=== PATIENT | female | born 1930 | race Caucasian/White ===

== ENCOUNTER 2018-04-15 11:10 | Emergency (ER) | payer MEDICARE, OTHER ==
[~2018-04-15] VITALS: Ht 170.2 cm; Wt 81.6 kg
[~2018-04-15 11:10] MED LIST: NAPR-243 PO
[2018-04-15] MEDS ORDERED: LIDOCAINE 1% INJ 20 ML 20 ML VIAL ONE (11:40)
[2018-04-15] MEDS ORDERED: LIDOCAINE 1% INJ 20 ML 20 ML VIAL INJ ONE (11:45)
[2018-04-15] MEDS ORDERED: TETANUS,DIPTH,PERTUSS P/F (BOOSTRIX) 0.5 ML VIAL IM ONE (11:45)
--- NOTE | 2018-04-15 11:51 | ED Fall/Injury ---
General Stated Complaint: FALL;FACE INJ Source: patient, family Exam Limitations: no limitations History of Present Illness Date Seen by Provider: Apr 15, 2018 Time Seen by Provider: 11:48 Initial Comments To ER by private vehicle, by her granddaughter with reports of a fall and substance with facial injury. She fell on the gravel while she was going [place] the post office. No loss of consciousness. No headache no nausea and she denies facial pain. No other injuries. Occurred: just prior to arrival Severity: moderate Injuries/Pain Location: head, face Loss of Consciousness: no loss of consciousness Associated Symptoms (Fall): No Headache, No Neck Pain Allergies and Home Medications Allergies Coded Allergies: No Known Drug Allergies (Unverified , 02/06/12) Home Medications Amoxicillin 500 Mg Capsule, 500 MG PO TID Prescribed by: DAVE AVILES on 04/15/18 1230 Naproxen 500 Mg Tablet, 1 EACH PO TID PRN FOR PAIN Prescribed by: MARQUISE WYATT on 02/06/12 1315 Patient Home Medication List Home Medication List Reviewed: Yes Review of Systems Review of Systems Constitutional: see HPI Eyes: See HPI Ears, Nose, Mouth, Throat: see HPI, epistaxis Respiratory: no symptoms reported Cardiovascular: no symptoms reported Genitourinary: no symptoms reported Musculoskeletal: no symptoms reported Skin: no symptoms reported Psychiatric/Neurological: No Symptoms Reported Past Sthdqxd-Igqnsg-Nkmgos Hx Patient Social History Recent Foreign Travel: No Contact w/Someone Who Travel: No Physical Exam Vital Signs Vital Signs - First Documented 04/15/18 12:01 Temp 97.8 Pulse 95 Resp 20 B/P (MAP) 103/61 (75) Pulse Ox 100 O2 Delivery Room Air Capillary Refill : Height, Weight, BMI Height: 5'10" Weight: 180lbs. oz. 81.304964jl; BMI Method:Stated General Appearance: WD/WN, no apparent distress HEENT: PERRL/EOMI, normal ENT inspection, TMs normal, pharynx normal, other ( significant periorbital ecchymosis on the right, swelling and bruising of the cheek, swelling of the bottom lip and. She does have a 1 cm laceration to the right nasolabial fold that is all the way through to the mucosa and a superficial laceration parallel to the vermilion border of the right lower lip.) Neck: non-tender, full range of motion; No tender lateral, No tender midline Respiratory: normal breath sounds, no respiratory distress, no accessory muscle use Gastrointestinal: normal bowel sounds, non tender, soft Extremities: normal range of motion, other (superficial skin tear 1 cm dorsal aspect ulnar side right wrist) Neurologic/Psychiatric: alert, normal mood/affect, oriented x 3 Skin: normal color, warm/dry [place] Coma Score Best Eye Response: (4) Open Spontaneously Best Verbal Response: (5) Oriented Best Motor Response: (6) Obeys Commands [place] Total: 15 Procedures/Interventions Wound Location: Face Wound Length (cm): 2 Wound's Depth, Shape: linear Wound Explored: clean Irrigated w/ Saline (ccs): 20 Anesthesia: 1% Lidocaine Volume Anesthetic (ccs): 2 Suture: Ethlion Suture Size: 5-0 Number of Sutures: 7 Layer Closure?: 1 Number Deep Layer Sutures: 0 Progress The laceration of the right nasolabial full was anesthetized with 1 mL of 1% lidocaine without epinephrine. Wound was then scrubbed with flexing/saline solution then irrigated with 20 mL of the same. The exterior surface was closed with 3 simple interrupted sutures size 5-0 Ethilon. The buccal mucosa was not sutured. The laceration 1 cm in length parallel to the vermilion border right lower lip was anesthetized with 1 mL of 1% lidocaine without epinephrine. Wound then scrubbed with chlorhexidine/saline solution. Wound then closed with 4 simple interrupted sutures size 5-0 Ethilon. Progress/Results/Core Measures Results/Orders My Orders Orders - DAVE AVILES APRN Dipht,Pertuss(Acell),Tet Adult (Boostrix (04/15/18 11:45) Lidocaine 1% Inj 20 Ml (Xylocaine 1% Inj (04/15/18 11:45) Ct Head/Face/Cervical Wo (04/15/18 11:41) Lidocaine 1% Inj 20 Ml (Xylocaine 1% Inj (04/15/18 11:40) Medications Given in ED Current Medications Medications Dose Ordered Sig/Brynn Route Start Time Stop Time Status Last Admin Dose Admin Lidocaine HCl 20 ml ONCE ONCE INJ 04/15/18 11:45 04/15/18 11:46 DC 04/15/18 11:45 20 ML Vital Signs/I&O 04/15/18 12:01 Temp 97.8 Pulse 95 Resp 20 B/P (MAP) 103/61 (75) Pulse Ox 100 O2 Delivery Room Air Diagnostic Imaging Diagonstic Imaging: CT Comments KENDAL: SHARAN HATCH [facility] REC#: [id number] PT STATUS: REG ER : 1930 PHYSICIAN: DAVE AVILES APRN ADMIT DATE: 04/15/18/ER Draft Date of Exam:04/15/18 CT HEAD/FACE/CERVICAL WO CLINICAL INDICATION: Patient fell and hit face, right-sided face bloody and swollen. EXAM: Axial Head CT without IV contrast with coronal reformats. Axial Maxillofacial CT scan without IV contrast with sagittal and coronal reformations. Axial CT scan of the cervical spine with sagittal and coronal reformations. COMPARISON: None. FINDINGS: Head CT: There is no evidence of acute cerebral infarct, intracranial hemorrhage, or gross mass effect. There is diffuse brain parenchymal volume loss seen. There is patchy and confluent areas of low-attenuation white matter changes throughout both cerebral hemispheres, likely representing chronic small vessel ischemic disease. There is normal segovia-white matter distinction. There is no significant midline shift or herniation. There is no evidence of hydrocephalus. The basal cisterns are unremarkable. Maxillofacial and skull CT: There is small amount of extra cranial soft tissue swelling in the right forehead/periorbital region and adjacent to the right nasal area. There is a comminuted fracture involving the right nasal bone which is mildly displaced. There is a nondisplaced fracture of the frontal process of the right maxilla. There is no other skull or maxillofacial fracture. Poor dentition is seen with multiple dental caries and periapical erosions involving the maxilla and mandibles. Otherwise, the skull, extracranial soft tissue, and orbits are unremarkable. The paranasal sinuses are unremarkable. Temporal bones show no significant abnormality. Cervical spine: There is no acute cervical spine fracture. There is grade 1 anterolisthesis of C3 on C4, C4 on C5 and C7 on T1. There is no pars defect and is likely degenerative. There is severe facet arthropathy which is most pronounced on the left side. There is multilevel vertebral body spurs. There is prominent matilda-odontoid pannus with calcification seen in the region. There is no significant prevertebral soft tissue swelling. Neck soft tissue structures show no significant abnormality. Visualized upper lung maddox are clear. IMPRESSION: 1: There is a mildly displaced comminuted fracture of the right nasal bone and a nondisplaced fracture of the frontal process of the right maxilla. There is soft tissue swelling adjacent to the region, right forehead and right periorbital region. Orbits are otherwise unremarkable. 2: There is no evidence of intracranial hemorrhage. 3: There is no acute cervical spine fracture. 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 Dictated on workstation # [id number] Dict: 04/15/18 1213 Trans: 04/15/18 1238 [facility] [phone] Interpreted by: EVA KAUR MD Electronically signed by: Departure Impression Primary Impression: Facial contusion Additional Impressions: Facial laceration Nasal bone fracture Right maxillary fracture Disposition: 01 HOME, SELF-CARE Condition: Stable Departure-Patient Inst. Decision time for Depature: 11:50 Referrals: HUY CLARK MD (PCP/Family) Primary Care Physician Patient Instructions: Laceration Repair With Stitches (DC) Add. Discharge Instructions: 1. Return to the emergency room in 5-7 days to have the stitches removed. Return for any headache, confusion, loss of consciousness or other concerns. Scripts Amoxicillin (Amoxicillin) 500 Mg Capsule 500 MG PO TID, #15 CAP Prov: DAVE AVILES APRN 04/15/18 Images Head/Face 1 - Laceration 2 - Laceration DAVE AVILES APRN Apr 15, 2018 11:51
[2018-04-15] MEDS ORDERED: AMOX500C2 PO (12:30)
--- NOTE | 2018-04-15 12:39 | Diagnostic Imaging Report ---
CLINICAL INDICATION: Patient fell and hit face, right-sided face bloody and swollen. EXAM: Axial Head CT without IV contrast with coronal reformats. Axial Maxillofacial CT scan without IV contrast with sagittal and coronal reformations. Axial CT scan of the cervical spine with sagittal and coronal reformations. COMPARISON: None. FINDINGS: Head CT: There is no evidence of acute cerebral infarct, intracranial hemorrhage, or gross mass effect. There is diffuse brain parenchymal volume loss seen. There is patchy and confluent areas of low-attenuation white matter changes throughout both cerebral hemispheres, likely representing chronic small vessel ischemic disease. There is normal segovia-white matter distinction. There is no significant midline shift or herniation. There is no evidence of hydrocephalus. The basal cisterns are unremarkable. Maxillofacial and skull CT: There is small amount of extra cranial soft tissue swelling in the right forehead/periorbital region and adjacent to the right nasal area. There is a comminuted fracture involving the right nasal bone which is mildly displaced. There is a nondisplaced fracture of the frontal process of the right maxilla. There is no other skull or maxillofacial fracture. Poor dentition is seen with multiple dental caries and periapical erosions involving the maxilla and mandibles. Otherwise, the skull, extracranial soft tissue, and orbits are unremarkable. The paranasal sinuses are unremarkable. Temporal bones show no significant abnormality. Cervical spine: There is no acute cervical spine fracture. There is grade 1 anterolisthesis of C3 on C4, C4 on C5 and C7 on T1. There is no pars defect and is likely degenerative. There is severe facet arthropathy which is most pronounced on the left side. There is multilevel vertebral body spurs. There is prominent matilda-odontoid pannus with calcification seen in the region. There is no significant prevertebral soft tissue swelling. Neck soft tissue structures show no significant abnormality. Visualized upper lung maddox are clear. IMPRESSION: 1: There is a mildly displaced comminuted fracture of the right nasal bone and a nondisplaced fracture of the frontal process of the right maxilla. There is soft tissue swelling adjacent to the region, right forehead and right periorbital region. Orbits are otherwise unremarkable. 2: There is no evidence of intracranial hemorrhage. 3: There is no acute cervical spine fracture. 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 Dictated by: Dictated on workstation # [id number]
[2018-04-15 13:00] VITALS: BP 103/61
== END 2018-04-15 13:00 | disposition home or self-care (01) ==
LOC: EDUNIT# 11:10 → ER 11:11
DX: S02.2XXA Fracture of nasal bones, initial encounter for closed fracture (principal); S02.40CA Maxillary fracture, right side, initial encounter for closed fracture; S01.81XA Laceration without foreign body of other part of head, initial encounter; R40.2142 Coma scale, eyes open, spontaneous, at arrival to emergency department; R40.2252 Coma scale, best verbal response, oriented, at arrival to emergency department; R40.2362 Coma scale, best motor response, obeys commands, at arrival to emergency department; Z23 Encounter for immunization; W01.10XA Fall on same level from slipping, tripping and stumbling with subsequent striking against unspecified object, initial encounter
CPT/HCPCS: 12011; 70450; 70486; 72125; 90471; 90715

== ENCOUNTER 2018-04-20 10:07 | Emergency (ER) | payer MEDICARE, OTHER ==
[~2018-04-20] VITALS: Ht 170.2 cm; Wt 80.7 kg
[~2018-04-20 10:07] MED LIST changes: +AMOX500C2 PO
[2018-04-20 10:37] VITALS: BP 117/49
== END 2018-04-20 10:37 | disposition home or self-care (01) ==
LOC: ER 10:07 → EDUNIT# 10:07 → ER 10:37
DX: S01.511D Laceration without foreign body of lip, subsequent encounter (principal); X58.XXXD Exposure to other specified factors, subsequent encounter

== ENCOUNTER 2018-07-22 13:07 | Inpatient (IN) | payer MEDICARE, OTHER ==
[~2018-07-22] VITALS: Ht 170.2 cm; Wt 78.0 kg
[2018-07-22] MEDS ORDERED: ORPHENADRINE 60 MG/2 ML (NORFLEX) AMP IV ONE (13:15)
[2018-07-22] MEDS ORDERED: fentaNYL INJECTION 100 MCG/2 ML AMP IVP ONE (13:15)
[2018-07-22] MEDS ORDERED: ORPHENADRINE 60 MG/2 ML (NORFLEX) AMP ONE (13:16)
--- NOTE | 2018-07-22 13:21 | ED Lower Extremity ---
General Chief Complaint: Hip/Pelvic Problems Stated Complaint: LT HIP PAIN,FALL Source: patient, family, EMS Exam Limitations: no limitations History of Present Illness Date Seen by Provider: Jul 22, 2018 Time Seen by Provider: 13:18 Initial Comments To ER per [facility] with reports of a fall and left hip pain. She states that she was walking to the bank in [place] when she had a brief episode of dizziness that caused her to fall. She landed on the left side and denies hitting her head or any neck pain. She states that the dizziness was brief and is no longer present. However, she does have some severe left hip pain and inability to bear weight. She denies any other injuries or pain. [facility] was summoned and brought her to the emergency room. She still lives at home alone and her granddaughter checks on her about 4 days a week. Her granddaughter accompanies her to the emergency room. Primary care provider is Dr. Gibbons. She does wish to be FULL CODE STATUS. She is not on anticoagulation. Onset: just prior to arrival Severity: moderate Pain/Injury Location: left hip Method of Injury: fell Allergies and Home Medications Allergies Coded Allergies: No Known Drug Allergies (Unverified , 02/06/12) Home Medications Lisinopril 5 Mg Tablet, Unknown Dose PO DAILY, (Reported) Patient Home Medication List Home Medication List Reviewed: Yes Review of Systems Constitutional: see HPI EENTM: see HPI Respiratory: no symptoms reported Cardiovascular: no symptoms reported Genitourinary: no symptoms reported Musculoskeletal: see HPI Skin: no symptoms reported Psychiatric/Neurological: No Symptoms Reported Physical Exam Vital Signs Vital Signs - First Documented 07/22/18 13:08 Temp 98.4 Pulse 94 Resp 18 B/P (MAP) 175/92 (119) Pulse Ox 97 O2 Delivery Room Air Capillary Refill : Height, Weight, BMI Height: 5'7.00" Weight: 178lbs. oz. 80.801552pk; 21.09 BMI Method:Stated General Appearance: WD/WN, no apparent distress HEENT: PERRL/EOMI, normal ENT inspection Neck: non-tender, full range of motion Respiratory: no respiratory distress, no accessory muscle use Hips: left hip other (there is shortening of the left leg with external rotation and severe pain at the left hip) Legs: bilateral leg non-tender, bilateral leg normal inspection, bilateral leg normal range of motion Knees: bilateral knee non-tender, bilateral knee normal inspection, bilateral knee normal range of motion Ankles: bilateral ankle non-tender, bilateral ankle normal inspection, bilateral ankle normal range of motion Feet: bilateral foot other (she does have strong palpable bilateral posterior tibial pulses) Neurologic/Psychiatric: alert, normal mood/affect Skin: normal color, warm/dry . She denies hitting her head or any head or neck pain. She did arrive to the emergency room in a rigid cervical collar applied by [facility]. This was cleared upon arrival to ER given her history of no injury or pain to the head or neck. She is able to turn her sed to either side and flex chin to chest without pain Procedures/Interventions Suture Size: 5-0 Progress/Results/Core Measures Results/Orders Lab Results Laboratory Tests Test 07/22/18 13:15 07/22/18 13:29 Range/Units White Blood Count 14.1 H 4.3-11.0 10^3/uL Red Blood Count 4.46 4.35-5.85 10^6/uL Hemoglobin 13.3 11.5-16.0 G/DL Hematocrit 40 35-52 % Mean Corpuscular Volume 89 80-99 FL Mean Corpuscular Hemoglobin 30 25-34 PG Mean Corpuscular Hemoglobin Concent 34 32-36 G/DL Red Cell Distribution Width 13.1 10.0-14.5 % Platelet Count 168 130-400 10^3/uL Mean Platelet Volume 10.5 H 7.4-10.4 FL Neutrophils (%) (Auto) 92 H 42-75 % Lymphocytes (%) (Auto) 4 L 12-44 % Monocytes (%) (Auto) 3 0-12 % Eosinophils (%) (Auto) 1 0-10 % Basophils (%) (Auto) 0 0-10 % Neutrophils # (Auto) 12.9 H 1.8-7.8 X 10^3 Lymphocytes # (Auto) 0.6 L 1.0-4.0 X 10^3 Monocytes # (Auto) 0.5 0.0-1.0 X 10^3 Eosinophils # (Auto) 0.1 0.0-0.3 10^3/uL Basophils # (Auto) 0.0 0.0-0.1 10^3/uL Neutrophils % (Manual) 88 % Lymphocytes % (Manual) 4 % Monocytes % (Manual) 7 % Eosinophils % (Manual) 1 % Basophils % (Manual) 0 % Band Neutrophils 0 % Blood Morphology Comment NORMAL Sodium Level 141 135-145 MMOL/L Potassium Level 4.0 3.6-5.0 MMOL/L Chloride Level 104 98-107 MMOL/L Carbon Dioxide Level 25 21-32 MMOL/L Anion Gap 12 5-14 MMOL/L Blood Urea Nitrogen 29 H 7-18 MG/DL Creatinine 0.93 0.60-1.30 MG/DL Estimat Glomerular Filtration Rate 57 BUN/Creatinine Ratio 31 Glucose Level 113 H 70-105 MG/DL Calcium Level 9.9 8.5-10.1 MG/DL Corrected Calcium 9.6 8.5-10.1 MG/DL Total Bilirubin 0.4 0.1-1.0 MG/DL Aspartate Amino Transf (AST/SGOT) 24 5-34 U/L Alanine Aminotransferase (ALT/SGPT) 18 0-55 U/L Alkaline Phosphatase 76 40-136 U/L Total Protein 7.7 6.4-8.2 GM/DL Albumin 4.4 3.2-4.5 GM/DL Urine Color YELLOW Urine Clarity CLEAR Urine pH 5 5-9 Urine Specific [place] 1.020 1.016-1.022 Urine Protein 1+ H NEGATIVE Urine Glucose (UA) NEGATIVE NEGATIVE Urine Ketones NEGATIVE NEGATIVE Urine Nitrite NEGATIVE NEGATIVE Urine Bilirubin NEGATIVE NEGATIVE Urine Urobilinogen NORMAL NORMAL MG/DL Urine Leukocyte Esterase 3+ H NEGATIVE Urine RBC (Auto) NEGATIVE NEGATIVE Urine RBC 2-5 H /HPF Urine WBC 2-5 /HPF Urine Squamous Epithelial Cells NONE /HPF Urine Crystals NONE /LPF Urine Bacteria NEGATIVE /HPF Urine Casts NONE /LPF Urine Mucus NEGATIVE /LPF Urine Culture Indicated NO My Orders Orders - DAVE AVILES APRN Chest 1 View, Ap/Pa Only (07/22/18 13:15) Ekg Tracing (07/22/18 13:15) Cbc With Automated Diff (07/22/18 13:15) Comprehensive Metabolic Panel (07/22/18 13:15) Ua Culture If Indicated (07/22/18 13:15) Espino Cath (07/22/18 13:15) Iv Heplock-Insert (Order) (07/22/18 13:15) Orphenadrine Injection (Norflex Injectio (07/22/18 13:15) Fentanyl Injection (Sublimaze Injection (07/22/18 13:15) Pelvis With Left Hip 2-3 Views (07/22/18 13:15) Orphenadrine Injection (Norflex Injectio (07/22/18 13:16) Manual Differential (07/22/18 13:15) Morphine Injection (Morphine Injection (07/22/18 14:00) Medications Given in ED Current Medications Medications Dose Ordered Sig/Brynn Route Start Time Stop Time Status Last Admin Dose Admin Fentanyl Citrate 50 mcg ONCE ONCE IVP 07/22/18 13:15 07/22/18 13:18 DC 07/22/18 13:21 50 MCG Morphine Sulfate 4 mg ONCE ONCE IVP 07/22/18 14:00 07/22/18 14:01 DC 07/22/18 13:56 4 MG Orphenadrine Citrate 30 mg ONCE ONCE IV 07/22/18 13:15 07/22/18 13:18 DC 07/22/18 13:21 30 MG Vital Signs/I&O 07/22/18 13:08 Temp 98.4 Pulse 94 Resp 18 B/P (MAP) 175/92 (119) Pulse Ox 97 O2 Delivery Room Air Diagnostic Imaging Diagonstic Imaging: Xray Comments NAME: SHARAN HATCH [facility] REC#: [id number] PT STATUS: REG ER : 1930 PHYSICIAN: DAVE AVILES APRN ADMIT DATE: 07/22/18/ER Draft Date of Exam:07/22/18 CHEST 1 VIEW, AP/PA ONLY INDICATION: Fall and left hip pain. Time of exam 200 p.m. No prior studies are available for comparison. The heart size is normal. The pulmonary vascularity is unremarkable. The lungs are clear. No infiltrate, effusion or pneumothorax is detected. Impression: No acute cardiopulmonary process is detected. Dictated on workstation # [id number] Dict: 07/22/18 1347 Trans: 07/22/18 1348 [facility] [phone] Interpreted by: NICK LOZA MD Electronically signed by: Departure Communication (Admissions) Time/Spoke to Admitting Phy: 14:[address] Rosas. He would like the patient to be kept nothing by mouth, tentative plan for operative repair this evening. Admit to medicine. Time/Spoke to Consulting Phy: 14:[address] Hogan. She'll be happy to consult on the patient for medical comorbidities which is hypertension Impression Primary Impression: Closed left hip fracture Qualified Codes: S72.002A - Fracture of unspecified part of neck of left femur , initial encounter for closed fracture Disposition: ADMITTED INPATIENT Condition: Stable Admissions Decision to Admit Reason: Admit from ER (General) Decision to Admit/Date: Jul 22, 2018 Time/Decision to Admit Time: 13:20 Departure-Patient Inst. Referrals: HUY GIBBONS MD (PCP/Family) Primary Care Physician DAVE AVILES APRN Jul 22, 2018 13:21
[2018-07-22] MEDS ORDERED: ATOR20TA66 PO (13:33)
[2018-07-22] MEDS ORDERED: SERT50TA2 PO (13:33)
[2018-07-22] MEDS ORDERED: GABA250S2 PO (13:33)
[2018-07-22] MEDS ORDERED: LISI-556 PO (13:34)
[2018-07-22] MEDS ORDERED: NAPR-1071 PO (13:34)
[2018-07-22 13:36] LABS: BILIRUBIN,URINE NEGATIVE (NEGATIVE); CLARITY,URINE CLEAR; COLOR,URINE YELLOW; GLUCOSE, URINE (UA) NEGATIVE (NEGATIVE); KETONES,URINE NEGATIVE (NEGATIVE); LEUKOCYTE ESTERASE ,URINE 3+ (NEGATIVE); NITRITE,URINE NEGATIVE (NEGATIVE); PH,URINE 5 (5-9); PROTEIN,URINE 1+ (NEGATIVE); UROBILINOGEN,URINE NORMAL (NORMAL)
[2018-07-22 13:44] LABS: BASOPHILS % (AUTO) 0 % (0-10); EOSINOPHILS # (AUTO) 0.1 10^3/uL (0.0-0.3); EOSINOPHILS % (AUTO) 1 % (0-10); HEMATOCRIT 40 % (35-52); HEMOGLOBIN 13.3 G/DL (11.5-16.0); LYMPHOCYTES # (AUTO) 0.6 X 10^3 (1.0-4.0); LYMPHOCYTES % (AUTO) 4 % (12-44); MEAN CORPUSCULAR HEMOGLOBIN 30 PG (25-34); MEAN CORPUSCULAR HGB CONC 34 G/DL (32-36); MEAN CORPUSCULAR VOLUME 89 FL (80-99); MEAN PLATELET VOLUME 10.5 FL (7.4-10.4); MONOCYTES # (AUTO) 0.5 X 10^3 (0.0-1.0); MONOCYTES % (AUTO) 3 % (0-12); NEUTROPHILS # (AUTO) 12.9 X 10^3 (1.8-7.8); NEUTROPHILS % (AUTO) 92 % (42-75); PLATELET COUNT 168 10^3/uL (130-400); RED BLOOD COUNT 4.46 10^6/uL (4.35-5.85); RED CELL DISTRIBUTION WIDTH 13.1 % (10.0-14.5); WHITE BLOOD COUNT 14.1 10^3/uL (4.3-11.0)
[2018-07-22 13:46] LABS: BACTERIA,URINE NEGATIVE /HPF
--- NOTE | 2018-07-22 13:48 | Diagnostic Imaging Report ---
INDICATION: Fall and left hip pain. Time of exam 200 p.m. No prior studies are available for comparison. The heart size is normal. The pulmonary vascularity is unremarkable. The lungs are clear. No infiltrate, effusion or pneumothorax is detected. Impression: No acute cardiopulmonary process is detected. Dictated by: Dictated on workstation # [id number]
[2018-07-22 13:58] LABS: ALBUMIN 4.4 GM/DL (3.2-4.5); BILIRUBIN,TOTAL 0.4 MG/DL (0.1-1.0); CALCIUM 9.9 MG/DL (8.5-10.1); CREATININE SERUM 0.93 MG/DL (0.60-1.30); TOTAL PROTEIN 7.7 GM/DL (6.4-8.2)
--- NOTE | 2018-07-22 13:58 | Diagnostic Imaging Report ---
INDICATION: Fall and left hip pain. AP view of the pelvis and two views of left hip demonstrate a left hip fracture. This appears to be a femoral neck fracture although exact location is difficult to determine on this study. There is coxa varus deformity. Femoroacetabular alignment is normal. Right hip is intact. Rami are intact. IMPRESSION: Left femoral neck fracture. Dictated by: Dictated on workstation # [id number]
[2018-07-22] MEDS ORDERED: morphine INJ 10 MG/ML 1ML (SYR OR VIAL) IVP ONE ×2 (14:00→14:30)
[2018-07-22 14:09] LABS: BAND NEUTROPHILS 0 %; BASOPHILS % (MANUAL) 0 %; EOSINOPHILS % (MANUAL) 1 %; LYMPHOCYTES % (MANUAL) 4 %; MONOCYTES % (MANUAL) 7 %; NEUTROPHILS % (MANUAL) 88 %
[2018-07-22 14:10] LABS: RBC MORPH NORMAL
[2018-07-22 14:40] VITALS: BP 128/70
[2018-07-22] MEDS ORDERED: LISI1TAB8 PO (15:07)
[2018-07-22] MEDS ORDERED: GABA-488 PO (15:07)
[2018-07-22] MEDS ORDERED: NAPR-915 PO (15:07)
[2018-07-22] MEDS ORDERED: ATOR40TA70 PO (15:07)
[2018-07-22] MEDS ORDERED: SERT100T8 PO (15:07)
--- NOTE | 2018-07-22 15:08 | Consultation-Hospitalist ---
HPI History of Present Illness: HPI/Chief Complaint Pt is an 88yoCF with a PMH of HTN who presented to the ER after a fall for evaluation of left hip pain. She states she was walking ot the bank when she got dizzy and fell landing on her hip. EMS was called due to her pain and she was brought her for evaluation where she was found to have a left hip fracture. She is being admitted for operative management and I am consulted for medical management. Family starts she is very healthy and her only medical problem is hypertension. She has no complaints at this time and has felt well otherwise. Source: patient Exam Limitations: no limitations Date Seen 07/22/18 Attending Physician Jerome Rosas Floyd R MD Referring Physician Date of Admission Jul 22, 2018 at 14:21 Home Medications & Allergies Home Medications Reviewed patient Home Medication Reconciliation performed by pharmacy medication reconciliations zoning technician and/or nursing. Patients Allergies have been reviewed. Allergies Allergies Coded Allergies No Known Drug Allergies (Unverified02/06/12) Past Broaaez-Skpmfq-Vsjfjf Hx Past Med/Social Hx: Reviewed Nursing Past Med/Soc Hx Patient Social History Alcohol Use: Denies Use Recreational Drug Use: No Smoking Status: Never a Smoker Recent Foreign Travel: No Contact w/other who traveled: No Recent Hopitalizations: No Recent Infectious Disease Expo: No Past Medical History Surgeries: Abdominal, Hysterectomy Cardiac: Hypertension Psychosocial: Depression Family History Reviewed Nursing Family Hx No Pertinent Family Hx Review of Systems Constitutional: No chills, No fever EENTM: No blurred vision, No double vision, No nose congestion, No throat pain Respiratory: No cough, No dyspnea on exertion, No short of breath Cardiovascular: No chest pain, No edema, No palpitations Gastrointestinal: No abdominal pain, No constipation, No diarrhea, No nausea, No vomiting Genitourinary: No dysuria, No frequency Musculoskeletal: see HPI, joint pain Skin: No lesions, No rash Psychiatric/Neurological: Denies Headache, Denies Numbness, Denies Tingling Physical Exam Physical Exam Vital Signs Vital Signs - First Documented 07/22/18 07/22/18 13:08 14:40 Temp 98.4 Pulse 94 Resp 18 B/P (MAP) 175/92 (119) Pulse Ox 97 O2 Delivery Room Air O2 Flow Rate 2.00 Capillary Refill : Less Than 3 Seconds Height, Weight, BMI Height: 5'7.00" Weight: 170lbs. oz. 77.048067yx; 21.09 BMI Method:Stated General Appearance: No Apparent Distress, WD/WN HEENT: PERRL/EOMI, Moist Mucous Membranes Neck: Non Tender, Supple Respiratory: Lungs Clear, No Respiratory Distress Cardiovascular: Regular Rate, Rhythm, No Murmur Gastrointestinal: Normal Bowel Sounds, Non Tender, Soft Extremity: Normal Capillary Refill, No Calf Tenderness Neurologic/Psychiatric: Alert, Oriented x3, Normal Mood/Affect Skin: Normal Color, Warm/Dry Results Results/Procedures Labs Laboratory Tests 07/22/18 13:15 Patient resulted labs reviewed. Imaging: Reviewed Imaging Report Assessment/Plan Assessment and Plan Assess & Plan/Chief Complaint Left femoral neck fracture Diagnosis/Problems Diagnosis/Problems (1) Closed left hip fracture Status: Acute Assessment & Plan: Management per Ortho Plan for OR today Per NSQIP calculator risk is 2.6% for serious complication Medically optimized for surgery Defer ultimate risk assessment to ortho Qualifiers: Encounter type: initial encounter Qualified Codes: S72.002A - Fracture of unspecified part of neck of left femur, initial encounter for closed fracture (2) Essential (primary) hypertension Assessment & Plan: Well controlled, APOLINAR Padron MD Jul 22, 2018 15:08
[2018-07-22 15:50] VITALS: BP 154/67
[2018-07-22] MEDS: NS IV 1000 ML 1,000 ML IV SCH (15:59)
[2018-07-22] MEDS ORDERED: ONDANSETRON 4 MG/2 ML (SDV) Z0FRAN IV PRN (16:00)
[2018-07-22] MEDS ORDERED: CATHETER FLUSH 10 ML SYR IV PRN (16:00)
[2018-07-22] MEDS: morphine INJ 4 MG/ML 1 ML (VIAL/SYRINGE) IV PRN ×2 (16:24→19:44)
[2018-07-22 19:25] VITALS: BP 112/58
[2018-07-23] MEDS: NS IV 1000 ML 1,000 ML IV SCH ×3 (00:01→17:08)
[2018-07-23 00:46] VITALS: BP 149/68
[2018-07-23] MEDS: morphine INJ 4 MG/ML 1 ML (VIAL/SYRINGE) IV PRN ×3 (02:28→11:54)
[2018-07-23 04:09] VITALS: BP 130/60
[2018-07-23] MEDS ORDERED: GENTAMICIN 40 MG/ML 2 ML INJ SDV ONE (06:37)
[2018-07-23] MEDS ORDERED: fentaNYL INJECTION 100 MCG/2 ML AMP ONE (06:46)
[2018-07-23] MEDS ORDERED: proPOfol 200 MG/20 ML (DIPRIVAN) VIAL IV ONE (06:46)
[2018-07-23] MEDS ORDERED: SUCCINYLCHOLINE INJ 100 MG/5 ML SYR ONE (06:46)
[2018-07-23] MEDS ORDERED: ONDANSETRON 4 MG/2 ML (SDV) Z0FRAN ONE (06:46)
[2018-07-23] MEDS ORDERED: LIDOCAINE PF 2% 5 ML (XYLOCAINE) VIAL ONE (06:46)
[2018-07-23] MEDS ORDERED: DEXAMETHASONE 10 MG/ML (DECADRON) 1 ML VIAL ONE (06:47)
[2018-07-23] MEDS ORDERED: MIDAZOLAM 2 MG/2 ML (VERSED) VIAL ONE (06:47)
[2018-07-23] MEDS: LACTATED RINGERS 1,000 ML IV PRN ×2 (07:15→08:15)
--- NOTE | 2018-07-23 07:43 | History & Physicial ---
History of Present Illness History of Present Illness Reason for visit/HPI 88 yo WF became dizzy and fell sustaining a displaced L femoral neck fracture. she was unable to bear weight and XR in via [place] emergency department ER showed a fracture. ortho was consulted and she was cleared by medicine for surgery. Date of Admission Jul 22, 2018 at 14:21 Date Seen by a Provider: Jul 23, 2018 Time Seen by a Provider: 07:40 I consulted on this patient on 07/23/18 07:39 Attending Physician Alexandria Rosas DO Admitting Physician Gurdeep Gibbons MD Consult Allergies and Home Medications Allergies Coded Allergies: No Known Drug Allergies (Unverified , 02/06/12) Home Medications Atorvastatin Calcium 40 Mg Tablet, 40 MG PO DAILY, (Reported) LAST FILLED #90 03-11-18 Gabapentin 300 Mg Capsule, 300 MG PO BID, (Reported) Lisinopril/Hydrochlorothiazide 1 Each Tablet, 1 TAB PO DAILY, (Reported) Naproxen 500 Mg Tablet, 500 MG PO BID, (Reported) Sertraline HCl 100 Mg Tablet, 100 MG PO DAILY, (Reported) LAST FILLED #90 03-11-18 Patient Home Medication List Home Medication List Reviewed: Yes Past Jyoswmh-[id number]-Wubvxj Hx Patient Social History Alcohol Use: Denies Use Recreational Drug Use: No Smoking Status: Never a Smoker Physical Abuse Screen: No Sexual Abuse: No Recent Foreign Travel: No Contact w/other who traveled: No Recent Hopitalizations: No Recent Infectious Disease Expo: No Immunizations Up To Date Date of Influenza Vaccine: Jun 03, 2018 Seasonal Allergies Seasonal Allergies: No Surgeries Abdominal, Hysterectomy Respiratory No Cardiovascular Yes Hypertension Neurological No Genitourinary No Gastrointestinal No Musculoskeletal No Endocrine History of Endocrine Disorders: No HEENT History of HEENT Disorders: No Cancer No Psychosocial History of Psychiatric Problem: No Behavioral Health Disorders: Depression Integumentary History of Skin or Integumenta: No Blood Transfusions History of Blood Disorders: No Family Medical History Significant Family History: No Pertinent Family Hx Family Hx: Patient reports no known family medical history. Review of Systems Constitutional: no symptoms reported Physical Exam Vital Signs Vital Signs - First Documented 07/22/18 07/22/18 13:08 14:40 Temp 98.4 Pulse 94 Resp 18 B/P (MAP) 175/92 (119) Pulse Ox 97 O2 Delivery Room Air O2 Flow Rate 2.00 Capillary Refill : Less Than 3 SecondsLess Than 3 Seconds Height, Weight, BMI Height: 5'7.00" Weight: 172lbs. 0.0oz. [id number]; 26.9 BMI Method:Stated General Appearance: No Apparent Distress Extremity: Other (LLE short and externally rotated, NVSI, skin intact, 2/4 DP, PT) Assessment/Plan Assessment and Plan ASSESSMENT: displaced left femoral neck fracture PLAN: left hip hemiarthroplasty post op DVT prophylaxis WBAT post op Problems: (1) Closed left hip fracture Status: Acute Qualifiers: Qualified Codes: S72.002A - Fracture of unspecified part of neck of left femur, initial encounter for closed fracture Assessment & Plan: Management per Ortho Plan for OR today Per NSQIP calculator risk is 2.6% for serious complication Medically optimized for surgery Defer ultimate risk assessment to ortho (2) Essential (primary) hypertension Assessment & Plan: Well controlled, trend Admission Diagnosis Admission Status: Inpatient Order (span 2 midnights) Reason for Inpatient Admission: pain Clinical Quality Measures DVT/VTE Risk/Contraindication: Risk Factor Score Per Nursin RFS Level Per Nursing on Admit: 4+=Very High ALEXANDRIA ROSAS DO Jul 23, 2018 07:43
[2018-07-23] MEDS: ceFAZolin 1,000 MG/10 ML (ANCEF) VIAL ONE ×2 (07:45→11:19)
[2018-07-23] MEDS ORDERED: ceFAZolin 1,000 MG/10 ML (ANCEF) VIAL IV ONE (08:15)
[2018-07-23] MEDS ORDERED: SEVOFLURANE (ULTANE) 15 ML INHAL SOLN ONE (08:51)
[2018-07-23] MEDS ORDERED: ROCURONIUM 10 MG/ML 5 ML SYRINGE IV ONE (08:51)
[2018-07-23] MEDS ORDERED: BUPIVACAINE 0.25% 30 ML (SENSORCAINE) VIAL ONE (08:51)
[2018-07-23] MEDS ORDERED: NEOSTIGMINE 1 MG/ML 5 ML SYRINGE ONE (08:52)
[2018-07-23] MEDS ORDERED: GLYCOPYRROLATE 0.2 MG/ML (ROBINUL) 2 ML VIAL ONE (08:52)
[2018-07-23] MEDS ORDERED: MEPERIDINE (DEMEROL) INJ 50 MG/ML IVP ONE (09:45)
[2018-07-23] MEDS ORDERED: ONDANSETRON 4 MG/2 ML (SDV) Z0FRAN IVP PRN (09:45)
[2018-07-23] MEDS ORDERED: morphine INJ 10 MG/ML 1ML (SYR OR VIAL) IVP ONE (09:45)
[2018-07-23 10:25] VITALS: BP 118/60
[2018-07-23 12:00] VITALS: BP 113/53
[2018-07-23] MEDS: HYDROcodone/APAP 7.5 MG/325 MG (LORTAB, LORCET PLUS) TABLET PO PRN ×2 (12:09→19:49)
--- NOTE | 2018-07-23 14:05 | Diagnostic Imaging Report ---
INDICATION: Left hip surgery. TIME OF EXAM: 01:05 p.m. FINDINGS: Single view of the hip demonstrates postop changes of left hip arthroplasty. Prosthetic elements are in good position. No fracture or loosening is seen. Overlying skin elroy are noted. IMPRESSION: Satisfactory postop left hip. Dictated by: Dictated on workstation # [id number]
--- NOTE | 2018-07-23 14:52 | Physical Therapy Evaluation ---
PT Evaluation-General Medical Diagnosis Admission Date Jul 22, 2018 at 14:21 Medical Diagnosis: left femoral neck fracture Onset Date: Jul 22, 2018 Therapy Diagnosis Therapy Diagnosis: generalized weakness/debility Height/Weight Height (Feet): 5 Height (Inches): 7.00 Weight (Pounds): 172 Weight (Ounces): 0.0 Precautions Precautions/Isolations: Fall Prevention, Standard Precautions Weight Bear Status Right Lower Extremity: Right Full Weight Bearing Left Lower Extremity: Left Partial Weight Bearing Referral Physician: Ralph Reason for Referral: Evaluation/Treatment Medical History Additional Medical History unremarkable Current History EMS secondary to fall at bank secondary to dizziness, falling to left Reviewed History: Yes Social History Home: Single Level Current Living Status: Alone Prior/Core FIM Prior Level of Function Therapy Code Descriptions/Definitions Functional [place] Measure: 0=Not Assessed/NA 4=Minimal Assistance 1=Total Assistance 5=Supervision or Setup 2=Maximal Assistance 6=Modified [place] 3=Moderate Assistance 7=Complete [place] Therapy Quality Codes: 6 Independent with activity with or without an assistive device 5 Patient requires set up or clean up by helper. Patient completes activity by themselves 4 Supervision or touching assist (CGA). [place] provide cues , steadying assist 3 The helper provides less than half the effort to complete the activity 2 The helper provides more than half the effort to complete the activity 1 Dependent. The helper does all the effort to complete an activity 7 Patient refused to complete or attempt activity 9 The patient did not perform the activity before the current illness or injury 88 Not attempted due to Medical conditions or safety concerns Functional Abilities and Goals: Independent: Patient completed the activities by him/herself, with or without an assistive device, with no assistance from a helper. Needed Some Help: Patient needed partial assistance from another person to complete activities. Dependent: A helper completed the activities for the patient. Unknown: Not Applicable: Bed Mobility: 6 Transfers (B,C,W/C) (FIM): 6 Gait: 7 Stairs: 6 Indoor Mobility (Ambulation): Independent Stairs: Independent Prior Devices Use: None PT Evaluation-Current Subjective Patient agrees to PT. Pain Numeric Pain Scale: 5-Moderate Pain Location: Left Location Body Site: Hip Pain Description: Acute Objective Patient Orientation: Normal For Age Problem Solving: Fair Attachments: Oxygen, Espino Catheter, IV ROM/Strength ROM Lower Extremities right LE WFL/left LE THR Strength Lower Extremities right LE 4-/5 grossly/ left LE 3-/5 grossly Integumentary/Posture Integumentary refer to nursing notes Bladder Incontinence: Espino Cath Posture WFL Neuromuscular (Tone, Coordination, Reflexes) diminished coordination due sedation from surgery Sensory Vision: Wears Glasses Hearing: Functional Sensation Right Lower Extremit: Intact Sensation Left Lower Extremity: Intact Transfers Therapy Code Descriptions/Definitions Functional [place] Measure: 0=Not Assessed/NA 4=Minimal Assistance 1=Total Assistance 5=Supervision or Setup 2=Maximal Assistance 6=Modified [place] 3=Moderate Assistance 7=Complete [place] Transfers (B, C, W/C) (FIM): 2 Scootin Supine to/from Sit: 2 Sit to/from Stand: 2 difficulty with maintaining PWB left LE Gait Mode of Locomotion: Walk Anticipated Mode of Locomotion: Walk Gait Assistive Device: FWW Balance Sitting Static: Fair Sitting Dynamic: Fair Standing Static: Poor Standing Dynamic: Poor Assessment/Needs 88 y.o. female, will benefit from skilled PT to address functional strength and mobility to improve current LOF to safely return to home or care facility at maximum LOF. Due to PWB left LE, patient may require extended care facility to ensure safe healing to return to home. Rehab Potential: Fair PT Short Term Goals Short Term Goals Time Frame: Aug 04, 2018 Transfers (B,C,W/C) (FIM): 4 Gait (FIM): 1 Distance (FIM): 1=up to 49 ft Gait Distance Comment: 15' Gait Level of Assist: 4 Gait Assistive Device: FWW PT Supervisor Core Drilling Goals Detention Goals PT Supervisor Core Drilling Goals Time Frame: Aug 14, 2018 Transfers (B,C,W/C) (FIM): 5 Gait (FIM): 2 Gait distance (FIM): 7=688-67 ft Distance: 75' Gait Level of Assist: 4 Gait Assistive Device: FWW PT Plan Problem List Problem List: Activity Tolerance, Functional Strength, Safety, Balance, Gait, Transfer, Bed Mobility Treatment/Plan Treatment Plan: Continue Plan of Care Treatment Plan: Bed Mobility, Education, Functional Activity Renate, Functional Strength, Gait, Safety, Therapeutic Exercise, Transfers Treatment Duration: Aug 21, 2018 Frequency: 11 times per week Estimated Hrs Per Day: .5 hour per day Patient and/or Family Agrees t: Yes Safety Risks/Education Patient Education: Reviewed Precautions Teaching Recipient: Patient Teaching Methods: Discussion Response to Teaching: Reinforcement Needed Discharge Recommendations Therapy D/C Recommendations: Acute Rehab, Home w/ Family Support, Fpc Placement, Group Home (TCU/NH) Time/GCodes Time In: 1420 Time Out: 1441 Total Billed Treatment Time: 21 Total Billed Treatment 1 visit EVModC 21 min AUNG FRY PT Jul 23, 2018 14:52
[2018-07-23 15:54] VITALS: BP 119/56
[2018-07-23] MEDS ORDERED: ceFAZolin 2 GM IV Premixed 50 ML IV SCH (16:00)
--- NOTE | 2018-07-23 17:19 | OPERATIVE REPORT ---
DATE OF SERVICE: 07/23/2018 SURGEON: Jerome Rosas DO MAINTENANCE SUPERVISOR ELECTRICAL: PHOEBE Beatty. This is a medically necessary procedure. Assistance was necessary for retraction of vital neurovascular structures. Without an assistant softball coach, the procedure would not be possible. PREOPERATIVE DIAGNOSIS: Displaced left femoral neck fracture. POSTOPERATIVE DIAGNOSIS: Displaced left femoral neck fracture. PROCEDURE PERFORMED: Left hip hemiarthroplasty. COMPLICATIONS: None. SPECIMENS: None. DRAINS PLACED: None. ESTIMATED BLOOD LOSS: Minimal. HISTORY OF PRESENT ILLNESS: The patient is a very pleasant 88-year-old female who became dizzy and fell yesterday. She came to the ER where x-rays were taken demonstrating a displaced femoral neck fracture. Orthopedics was consulted and she was cleared by medicine for surgery. DESCRIPTION OF PROCEDURE: The patient was identified by name on wrist band in the preoperative holding area and the operative site was signed, consent was signed. SCDs were placed. Antibiotics were started. She was taken to the operating theater and placed under general endotracheal tube anesthesia and then transferred to the operating room table in lateral position with the left side up. She was then secured to the table, prepped and draped in usual sterile fashion. After a formal timeout, incision was made over the lateral aspect of the left proximal femur. Standard approach to the proximal femur took place. I split the gluteus dione muscle, performed a T-shaped capsulotomy and I then removed the femoral head. I performed a femoral neck cut and alignment with _the cutting guide____ provided by the Synthes prosthesis, which I was to use. At this point, I gained access to the femoral canal and I broached it to the appropriate size. I then trialled it and I assessed leg length tension as well as the length and the trial was the fit. Therefore, I irrigated the wound. I placed a Synthes permanent femoral component followed by the bipolar component. I then relocated this in the acetabulum and brought it through a gentle range of motion. I then closed the capsulotomy utilizing a 0 Ti-Cron stitch. I then irrigated again. I closed all the soft tissue with 0 Vicryl followed by elroy for skin. I applied dressings, took the patient in the supine position in the PACU where she awoke without incident. She tolerated the procedure well. PLAN: At this time is to admit the patient for IV antibiotics, IV pain control and postoperative monitoring. We will have the patient on blood thinners per medicine. She will receive medical treatment per medicine, but she is stable to weightbear as tolerated. Job ID: [id number] DocumentID: [id number] Dictated Date: 07/23/2018 08:57:22 Chargeback Analyst Date: 07/23/2018 17:18:44 Dictated By: DO RADHA FRAIRE
[2018-07-23] MEDS: ENOXAPARIN 30 MG/0.3 ML (LOVENOX) SYR SC SCH (19:49)
[2018-07-23 20:00] VITALS: BP 113/55
[2018-07-24] VITALS: BP 119/59
[2018-07-24] MEDS: NS IV 1000 ML 1,000 ML IV SCH ×4 (01:12→17:52)
[2018-07-24 04:00] VITALS: BP 115/56
[2018-07-24 05:54] LABS: RED BLOOD COUNT 2.7 10^6/uL (4.35-5.85); WHITE BLOOD COUNT 6.2 10^3/uL (4.3-11.0)
[2018-07-24 06:10] LABS: ALANINE AMINOTRANSFERASE 12 U/L (0-55); ALBUMIN 2.9 GM/DL (3.2-4.5); ALKALINE PHOSPHATASE 43 U/L (40-136); BILIRUBIN,TOTAL 0.4 MG/DL (0.1-1.0); BUN/CREATININE RATIO 24; CARBON DIOXIDE 23 MMOL/L (21-32); CHLORIDE 110 MMOL/L (98-107); CREATININE SERUM 0.71 MG/DL (0.60-1.30); GFR ESTIMATED > 60; GLUCOSE 119 MG/DL (70-105); POTASSIUM 3.4 MMOL/L (3.6-5.0); SODIUM 141 MMOL/L (135-145); TOTAL PROTEIN 4.9 GM/DL (6.4-8.2)
[2018-07-24] MEDS: HYDROcodone/APAP 7.5 MG/325 MG (LORTAB, LORCET PLUS) TABLET PO PRN ×2 (07:48→16:44)
[2018-07-24 08:00] VITALS: BP 129/62
[2018-07-24] MEDS: ENOXAPARIN 30 MG/0.3 ML (LOVENOX) SYR SC SCH ×2 (08:53→16:40)
--- NOTE | 2018-07-24 10:04 | Anesthesia-General Post-Op ---
General Patient Condition Mental Status/LOC: Same as Preop Cardiovascular: Satisfactory Nausea/Vomiting: Absent Respiratory: Satisfactory Pain: Controlled Complications: Absent Post Op Complications Complications None Follow Up Care/Instructions Patient Instructions None needed. Anesthesia/Patient Condition Patient Condition Patient is doing well, no complaints, stable vital signs, no apparent adverse anesthesia problems. No complications reported per nursing. SARAH PHELPS CRNA Jul 24, 2018 10:04
--- NOTE | 2018-07-24 10:51 | Occupational Therapy Eval ---
OT Evaluation-General/PLF Medical Diagnosis Admission Date Jul 22, 2018 at 14:21 Medical Diagnosis: left femoral neck fracture/ASA Onset Date: Jul 22, 2018 Therapy Diagnosis Therapy Diagnosis: Decreased ADL skills Height/Weight Height (Feet): 5 Height (Inches): 7.00 Weight (Pounds): 172 Weight (Ounces): 0.0 Precautions Precautions/Isolations: Fall Prevention, Standard Precautions Safety Interventions: Reorient-PRN Weight Bear Status Weight Bearing Restriction: Weight Bearing/Tolerated Referral Physician: Ralph Referral Reason: Activity Tolerance, Self Care, Evaluation/Treatment, Strengthening/ROM Medical History Additional Medical History Hysterectomy Current History Pt. fell outside and sustained femoral neck fx. Had left ASA Reviewed History: Yes Social History Home: Single Level Current Living Status: Alone Entry Into Home: Level Entry In back of house. ADL-Prior Level of Function Therapy Code Descriptions/Definitions Functional [place] Measure: 0=Not Assessed/NA 4=Minimal Assistance 1=Total Assistance 5=Supervision or Setup 2=Maximal Assistance 6=Modified [place] 3=Moderate Assistance 7=Complete [place] Therapy Quality Codes: 6 Independent with activity with or without an assistive device 5 Patient requires set up or clean up by helper. Patient completes activity by themselves 4 Supervision or touching assist (CGA). [place] provide cues , steadying assist 3 The helper provides less than half the effort to complete the activity 2 The helper provides more than half the effort to complete the activity 1 Dependent. The helper does all the effort to complete an activity 7 Patient refused to complete or attempt activity 9 The patient did not perform the activity before the current illness or injury 88 Not attempted due to Medical conditions or safety concerns Functional Abilities and Goals: Independent: Patient completed the activities by him/herself, with or without an assistive device, with no assistance from a helper. Needed Some Help: Patient needed partial assistance from another person to complete activities. Dependent: A helper completed the activities for the patient. Unknown: Not Applicable: ADL PLOF Comments Pt. was independent with daily tasks. Self Care: Independent Functional Cognition: Independent DME/Equipment: Tub/Shower DME/Equipment Comments Pt. does not have a shower seat. Does not have a walker. Uses a cane for mobility. Drive Self: Yes OT Current Status Subjective Pt. states that she is "sore" but does not state a pain level. Appearance Pt. in bed. Visiting with a friend. Agrees to work with OT. Mental Status/Objective Patient Orientation: Person, Place, Time, Situation Attachments: Espino Catheter, IV Current Upper Extremity ROM WFL Upper Extremity Strength WFL ADL-Treatment Therapy Code Descriptions/Definitions Functional [place] Measure: 0=Not Assessed/NA 4=Minimal Assistance 1=Total Assistance 5=Supervision or Setup 2=Maximal Assistance 6=Modified [place] 3=Moderate Assistance 7=Complete [place] Therapy Quality Codes: 6 Independent with activity with or without an assistive device 5 Patient requires set up or clean up by helper. Patient completes activity by themselves 4 Supervision or touching assist (CGA). [place] provide cues , steadying assist 3 The helper provides less than half the effort to complete the activity 2 The helper provides more than half the effort to complete the activity 1 Dependent. The helper does all the effort to complete an activity 7 Patient refused to complete or attempt activity 9 The patient did not perform the activity before the current illness or injury 88 Not attempted due to Medical conditions or safety concerns Lower Body Dressing (FIM): 2 (Pt. has hip precautions and can't bend over.) Transfers (B, C, W/C) (FIM): 3 (Mod assist supine-sit. Min assist sit-stand. Min assist to lay back down and get left LE into bed.) Education OT Patient Education: Correct positioning, Modified ADL techniques, Progress toward Goal/Update tx plan, Purpose of tx/functional activities, Reviewed precautions, Rehab process, Transfer techniques Teaching Recipient: Patient Teaching Methods: Demonstration, Discussion Response to Teaching: Verbalize Understanding, Return Demonstration OT Short Term Goals Short Term Goals Time Frame: Jul 31, 2018 Eating(FIM): 5 Grooming(FIM): 5 Bathing(FIM): 4 Upper Body Dressing(FIM): 5 Lower Body Dressing(FIM): 4 Toileting(FIM): 5 Transfers (B,C,W/C) (FIM): 4 Toilet/Commode Transfer(FIM): 4 Shower Transfer(FIM): 4 Additional Short Term Goals: 1-Demonstrate ADL Tasks, 2-Verbalize Understanding , 3-ImproveStrength/Renate 1=Demonstrate adherence to instructed precautions during ADL tasks. 2=Patient will verbalize/demonstrate understanding of assistive devices/ modifications for ADL. 3=Patient will improve strength/tolerance for activity to enable patient to perform ADL's. OT Form Setter Helper Goals Mcc Goals Time Frame: Aug 07, 2018 Eating (FIM): 6 Grooming(FIM): 6 Bathing(FIM): 5 Upper Body Dressing(FIM): 6 Lower Body Dressing(FIM): 5 Toileting(FIM): 6 Transfers (B,C,W/C) (FIM): 6 Toilet/Commode Transfer(FIM): 6 Shower Transfer(FIM): 5 Additional Goals: 1-Demonstrate ADL Tasks, 2-Verbalize Understanding, 3- ImproveStrength/Renate 1=Demonstrate adherence to instructed precautions during ADL tasks. 2=Patient will verbalize/demonstrate understanding of assistive devices/ modifications for ADL. 3=Patient will improve strength/tolerance for activity to enable patient to perform ADL's. OT Education/Plan Problem List/Assessment Assessment: Decreased Activ Tolerance, Dependent Transfers, Impaired Bed Mobility, Impaired Funct Balance, Impaired I ADL's, Impaired Self-Care Skills Discharge Recommendations Plan/Recommendations: Continue POC Therapy D/C Recommendations: Acute Rehab Equpiment Recommendations-D/C: Extended Bath Bench, Hip Kit Treatment Plan/Plan of Care Treatment,Training & Education: Yes Patient would benefit from OT for education, treatment and training to promote independence in ADL's, mobility, safety and/or upper extremity function for ADL' s. Plan of Care: ADL Retraining, Functional Mobility, UE Funct Exercise/Act Treatment Duration: Aug 07, 2018 Frequency: At least 5 of 7 days/Wk (IRF) Estimated Hrs Per Day: 1.5 hours per day Agreement: Yes Rehab Potential: Good Time/GCodes Start Time: 10:05 Stop Time: 10:20 Total Time Billed (hr/min): 15 Billed Treatment Time 1, NORA BOWMAN OT Jul 24, 2018 10:51
--- NOTE | 2018-07-24 11:08 | Physical Therapy Daily Note ---
PT Daily Note-Current Subjective Pt alert and agreeable. Transfers Therapy Code Descriptions/Definitions Functional [place] Measure: 0=Not Assessed/NA 4=Minimal Assistance 1=Total Assistance 5=Supervision or Setup 2=Maximal Assistance 6=Modified [place] 3=Moderate Assistance 7=Complete [place] Therapy Quality Codes: 6 Independent with activity with or without an assistive device 5 Patient requires set up or clean up by helper. Patient completes activity by themselves 4 Supervision or touching assist (CGA). [place] provide cues , steadying assist 3 The helper provides less than half the effort to complete the activity 2 The helper provides more than half the effort to complete the activity 1 Dependent. The helper does all the effort to complete an activity 7 Patient refused to complete or attempt activity 9 The patient did not perform the activity before the current illness or injury 88 Not attempted due to Medical conditions or safety concerns Transfers (B, C, W/C) (FIM): 2 Supine to/from Sit: 2 Sit to/from Stand: 3 Bed to/from Chair: 3 Pt is a bit impulsive and needs frequent cues to slow down and maintain PWB. Getting into bed was MAX assist. Weight Bearing Right Lower Extremity: Right Full Weight Bearing Left Lower Extremity: Left Partial Weight Bearing Gait Training Distance: 5 Amb 5ft PWB on the (L) using FWW and Min A for balance. Constant cues for sequence and to slow down. Exercises Supine Ex: LE Protocol Supine Reps: 10 PT Short Term Goals Short Term Goals Time Frame: Aug 04, 2018 Transfers (B,C,W/C) (FIM): 4 Gait (FIM): 1 Distance (FIM): 1=up to 49 ft Gait Distance Comment: 15' Gait Level of Assist: 4 Gait Assistive Device: FWW PT Skilled Nursing Goals [place] Machine Operator Goals PT Skilled Nursing Goals Time Frame: Aug 14, 2018 Transfers (B,C,W/C) (FIM): 5 Gait (FIM): 2 Gait distance (FIM): 6=139-57 ft Distance: 75' Gait Level of Assist: 4 Gait Assistive Device: FWW PT Plan Treatment/Plan Treatment Plan: Continue Plan of Care Treatment Plan: Bed Mobility, Education, Functional Activity Renate, Functional Strength, Gait, Safety, Therapeutic Exercise, Transfers Treatment Duration: Aug 21, 2018 Frequency: 11 times per week Estimated Hrs Per Day: .5 hour per day Patient and/or Family Agrees t: Yes Time/GCodes Time In: 1040 Time Out: 1100 Total Billed Treatment Time: 20 Total Billed Treatment visit, ex 10min, gait 10min DONNIE LORA PT Jul 24, 2018 11:08
--- NOTE | 2018-07-24 11:54 | Progress Note-Hospitalist ---
Subjective HPI/CC On Admission Date Seen by Provider: Jul 24, 2018 Time Seen by Provider: 08:00 Pt is an 88yoCF with a PMH of HTN who presented to the ER after a fall for evaluation of left hip pain. She states she was walking ot the bank when she got dizzy and fell landing on her hip. EMS was called due to her pain and she was brought her for evaluation where she was found to have a left hip fracture. She is being admitted for operative management and I am consulted for medical management. Family starts she is very healthy and her only medical problem is hypertension. She has no complaints at this time and has felt well otherwise. Subjective/Events-last exam Patient denies any pain at rest and with movement there is some left incisional hip pain. She denies chest pain shortness of breath or nausea. She also denies any lightheadedness. There is been no evidence for melena or bright red blood per rectum. Objective Exam Vital Signs Vital Signs Date Time Temp Pulse Resp B/P (MAP) Pulse Ox O2 Delivery O2 Flow Rate FiO2 07/24/18 08:00 Nasal Cannula 2.00 07/24/18 08:00 100.0 92 18 129/62 (84) 93 Capillary Refill : Less Than 3 SecondsLess Than 3 Seconds General Appearance: No Apparent Distress, WD/WN Respiratory: Chest Non Tender, Lungs Clear, Normal Breath Sounds, No Accessory Muscle Use, No Respiratory Distress Cardiovascular: Regular Rate, Rhythm, No Edema, No Gallop, No JVD, No Murmur, Normal Peripheral Pulses Gastrointestinal: Normal Bowel Sounds, No Organomegaly, No Pulsatile Mass, Non Tender, Soft Extremity: Other (Average amount of left hip swelling post hemiarthroplasty there is no significant induration or purpura noted. There is no calf pain present in the incision looks clean no drainage on the bandage. Extremities are warm) Results/Procedures Lab Laboratory Tests 07/24/18 05:30 Patient resulted labs reviewed. Imaging: Reviewed Imaging Report Assessment/Plan Assessment and Plan Assess & Plan/Chief Complaint (1) Closed left hip fracture Status: Acute Assessment & Plan: Management per Ortho Plan for OR today Per NSQIP calculator risk is 2.6% for serious complication Medically optimized for surgery Defer ultimate risk assessment to ortho Qualifiers: Encounter type: initial encounter Qualified Codes: S72.002A - Fracture of unspecified part of neck of left femur, initial encounter for closed fracture (2) Essential (primary) hypertension Assessment & Plan: Well controlled, on no medical therapy. The patient has had several falls in the last week reporting some lightheadedness. Discussed my concerns with the daughter about orthostatic hypotension and she is in agreement that we will not be reinitiating antihypertensive medication unless there is significant sitting or standing hypertension. 3. Postop anemia likely due to combination of fracture related bleeding surgical blood loss in addition to IV rehydration. No evidence for ongoing active bleeding but will hold Lovenox today repeat blood counts later today and again in the morning. There is no evidence for hemodynamic instability at this time. Clinical Quality Measures DVT/VTE Risk/Contraindication: Risk Factor Score Per Nursin RFS Level Per Nursing on Admit: 4+=Very High MARIANO SILVA MD Jul 24, 2018 11:54
[2018-07-24 12:00] VITALS: BP 136/61
[2018-07-24 12:02] LABS: BASOPHILS % (AUTO) 0 % (0-10); EOSINOPHILS # (AUTO) 0.2 10^3/uL (0.0-0.3); EOSINOPHILS % (AUTO) 4 % (0-10); HEMATOCRIT 26 % (35-52); HEMOGLOBIN 8.4 G/DL (11.5-16.0); LYMPHOCYTES # (AUTO) 0.8 X 10^3 (1.0-4.0); LYMPHOCYTES % (AUTO) 12 % (12-44); MEAN CORPUSCULAR HEMOGLOBIN 30 PG (25-34); MEAN CORPUSCULAR HGB CONC 32 G/DL (32-36); MEAN CORPUSCULAR VOLUME 92 FL (80-99); MEAN PLATELET VOLUME 9.9 FL (7.4-10.4); MONOCYTES # (AUTO) 0.5 X 10^3 (0.0-1.0); MONOCYTES % (AUTO) 8 % (0-12); NEUTROPHILS # (AUTO) 4.7 X 10^3 (1.8-7.8); NEUTROPHILS % (AUTO) 76 % (42-75); PLATELET COUNT 114 10^3/uL (130-400); RED BLOOD COUNT 2.83 10^6/uL (4.35-5.85); WHITE BLOOD COUNT 6.2 10^3/uL (4.3-11.0)
[2018-07-24] MEDS ORDERED: ACETAMINOPHEN 325 MG TABLET PO PRN (13:15)
[2018-07-24 15:52] VITALS: BP 136/62
--- NOTE | 2018-07-24 16:12 | Progress Note (SOAP) ---
Subjective Date Seen by a Provider: Jul 24, 2018 Time Seen by a Provider: 16:11 Subjective/Events-last exam SRINIVAS. Doing well. Has been ambulating on her hip. She has no complaints. Objective Exam Vital Signs Date Time Temp Pulse Resp B/P (MAP) Pulse Ox O2 Delivery O2 Flow Rate FiO2 07/24/18 15:52 98.9 94 20 136/62 (86) 94 Nasal Cannula 2.00 07/24/18 13:46 100.1 07/24/18 13:16 100.1 07/24/18 13:00 95 07/24/18 12:00 100.1 91 18 136/61 (86) 97 Nasal Cannula 2.00 07/24/18 08:00 Nasal Cannula 2.00 07/24/18 08:00 100.0 92 18 129/62 (84) 93 Nasal Cannula 2.00 07/24/18 07:44 Nasal Cannula 2.00 07/24/18 07:00 86 07/24/18 04:00 99.2 86 18 115/56 (75) 95 Nasal Cannula 2.00 07/24/18 01:00 90 07/24/18 00:00 99.0 89 18 119/59 (79) 93 Nasal Cannula 2.00 07/23/18 20:00 98.8 84 16 113/55 (74) 94 Nasal Cannula 1.00 07/23/18 19:00 90 I & O 07/24/18 07:00 Intake Total 2940 ml Output Total 1000 ml Balance 1940 ml Capillary Refill : Less Than 3 SecondsLess Than 3 Seconds General Appearance: No Apparent Distress Extremity: Other (5/5 motor dressing CDI, 2/4 DP,PT) Results Lab Laboratory Tests 07/24/18 05:30: White Blood Count 6.2, Red Blood Count 2.70L, Hemoglobin 8.0#L, Hematocrit 25L, Mean Corpuscular Volume 92, Mean Corpuscular Hemoglobin 30, Mean Corpuscular Hemoglobin Concent 32, Red Cell Distribution Width 13.0, Platelet Count 112L, Mean Platelet Volume 10.0, Sodium Level 141, Potassium Level 3.4L, Chloride Level 110H, Carbon Dioxide Level 23, Anion Gap 8, Blood Urea Nitrogen 17, Creatinine 0.71, Estimat Glomerular Filtration Rate > 60, BUN/Creatinine Ratio 24, Glucose Level 119H, Calcium Level 8.0L, Corrected Calcium 8.9, Total Bilirubin 0.4, Aspartate Amino Transf (AST/SGOT) 26, Alanine Aminotransferase ( ALT/SGPT) 12, Alkaline Phosphatase 43, Total Protein 4.9L, Albumin 2.9L 07/24/18 11:40: White Blood Count 6.2, Red Blood Count 2.83L, Hemoglobin 8.4L, Hematocrit 26L, Mean Corpuscular Volume 92, Mean Corpuscular Hemoglobin 30, Mean Corpuscular Hemoglobin Concent 32, Red Cell Distribution Width 13.0, Platelet Count 114L, Mean Platelet Volume 9.9, Neutrophils (%) (Auto) 76H, Lymphocytes (%) (Auto) 12 , Monocytes (%) (Auto) 8, Eosinophils (%) (Auto) 4, Basophils (%) (Auto) 0, Neutrophils # (Auto) 4.7, Lymphocytes # (Auto) 0.8L, Monocytes # (Auto) 0.5, Eosinophils # (Auto) 0.2, Basophils # (Auto) 0.0 Microbiology 07/22/18 MRSA Screen - Final, Complete Assessment/Plan Assessment/Plan Assess & Plan/Chief Complaint S/p hemiarthroplasty POD 1 PLAN: lovenox WBAT LLE pain control rehab when ok with medicine stable from orthopedic standpoint Final Diagnosis left hip fracture Clinical Quality Measures Admission Status Admission Dx ASSESSMENT: displaced left femoral neck fracture PLAN: left hip hemiarthroplasty post op DVT prophylaxis WBAT post op DVT/VTE Risk/Contraindication: Risk Factor Score Per Nursin RFS Level Per Nursing on Admit: 4+=Very High ALEXANDRIA VELEZ DO Jul 24, 2018 16:12
[2018-07-24 20:17] VITALS: BP 128/58
[2018-07-25 00:46] VITALS: BP 142/62
[2018-07-25 04:01] VITALS: BP 122/64
[2018-07-25 05:09] LABS: RED BLOOD COUNT 2.71 10^6/uL (4.35-5.85); RED CELL DISTRIBUTION WIDTH 12.8 % (10.0-14.5); WHITE BLOOD COUNT 7.4 10^3/uL (4.3-11.0)
[2018-07-25 08:00] VITALS: BP 155/67
[2018-07-25] MEDS: NS IV 1000 ML 1,000 ML IV SCH (09:29)
[2018-07-25] MEDS: ENOXAPARIN 30 MG/0.3 ML (LOVENOX) SYR SC SCH ×2 (09:32→20:39)
--- NOTE | 2018-07-25 11:36 | Progress Note-Hospitalist ---
Subjective HPI/CC On Admission Date Seen by Provider: Jul 25, 2018 Time Seen by Provider: 11:31 Pt is an 88yoCF with a PMH of HTN who presented to the ER after a fall for evaluation of left hip pain. She states she was walking [place] the [place] when she got dizzy and fell landing on her hip. EMS was called due to her pain and she was brought her for evaluation where she was found to have a left hip fracture. She is being admitted for operative management and I am consulted for medical management. Family starts she is very healthy and her only medical problem is hypertension. She has no complaints at this time and has felt well otherwise. Subjective/Events-last exam Patient states that she is feeling well. Minimal discomfort at rest. She states that there is no pain that she can't deal with with bed mobility. She denies chest pain shortness of breath with no evidence for GI tract bleeding. Objective Exam Vital Signs Vital Signs Date Time Temp Pulse Resp B/P (MAP) Pulse Ox O2 Delivery O2 Flow Rate FiO2 07/25/18 08:00 Nasal Cannula 2.00 07/25/18 08:00 97.5 90 20 155/67 (96) 97 Capillary Refill : Less Than 3 SecondsLess Than 3 Seconds General Appearance: No Apparent Distress Respiratory: Chest Non Tender, Lungs Clear, Normal Breath Sounds, No Accessory Muscle Use, No Respiratory Distress Cardiovascular: Regular Rate, Rhythm, No Edema, No Gallop, No JVD, No Murmur, Normal Peripheral Pulses Gastrointestinal: Normal Bowel Sounds, No Organomegaly, No Pulsatile Mass, Non Tender, Soft Extremity: Other (Swelling of the left hip unchanged from yesterday stable over the usual amount of induration without erythema or significant pain to palpation. Minimal serosanguineous drainage on the bandage. No significant pedal edema bilaterally and no calf pain.) Results/Procedures Lab Laboratory Tests 07/24/18 11:40 07/25/18 05:01 Patient resulted labs reviewed. Imaging: Reviewed Imaging Report Assessment/Plan Assessment and Plan Assess & Plan/Chief Complaint (1) Closed left hip fracture Status: Acute Assessment & Plan: Management per Ortho Plan for OR today Per NSQIP calculator risk is 2.6% for serious complication Medically optimized for surgery Defer ultimate risk assessment to ortho Qualifiers: Encounter type: initial encounter Qualified Codes: S72.002A - Fracture of unspecified part of neck of left femur, initial encounter for closed fracture (2) Essential (primary) hypertension Assessment & Plan: Well controlled, on no medical therapy. The patient has had several falls in the last week reporting some lightheadedness. Discussed my concerns with the daughter about orthostatic hypotension and she is in agreement that we will not be reinitiating antihypertensive medication unless there is significant sitting or standing hypertension. 3. Postop anemia likely due to combination of fracture related bleeding surgical blood loss in addition to IV rehydration. No evidence for ongoing active bleeding with hemoglobin essentially stable at 8 considering her degree of IV fluid replacement. Will DC IV fluids and resume Lovenox tonight.. There is no evidence for hemodynamic instability at this time. 4. Mild hypokalemia we will discontinue IV fluids repeat CBC and BMP in the morning. Clinical Quality Measures DVT/VTE Risk/Contraindication: Risk Factor Score Per Nursin RFS Level Per Nursing on Admit: 4+=Very High MARIANO SILVA MD Jul 25, 2018 11:36
[2018-07-25 12:00] VITALS: BP 146/65
[2018-07-25] MEDS: HYDROcodone/APAP 7.5 MG/325 MG (LORTAB, LORCET PLUS) TABLET PO PRN ×2 (13:07→21:23)
--- NOTE | 2018-07-25 14:29 | Physical Therapy Daily Note ---
PT Daily Note-Current Subjective Pt agreeable. Up in chair with family present. Transfers Therapy Code Descriptions/Definitions Functional [place] Measure: 0=Not Assessed/NA 4=Minimal Assistance 1=Total Assistance 5=Supervision or Setup 2=Maximal Assistance 6=Modified [place] 3=Moderate Assistance 7=Complete [place] Therapy Quality Codes: 6 Independent with activity with or without an assistive device 5 Patient requires set up or clean up by helper. Patient completes activity by themselves 4 Supervision or touching assist (CGA). [place] provide cues , steadying assist 3 The helper provides less than half the effort to complete the activity 2 The helper provides more than half the effort to complete the activity 1 Dependent. The helper does all the effort to complete an activity 7 Patient refused to complete or attempt activity 9 The patient did not perform the activity before the current illness or injury 88 Not attempted due to Medical conditions or safety concerns Sit to/from Stand: 4 Needed verbal cues for wt shift, use of arm rests, wt bearing status, and also min physical assist. Weight Bearing Right Lower Extremity: Right Full Weight Bearing Left Lower Extremity: Left Partial Weight Bearing Gait Training Gait (FIM): 2 Distance: 45 Gait Persons Needed: 1 Gait Assistive Device: FWW Ambulated 45 ft with FWW, step to pattern with PWB on the Left. Education on wt bearing status and step sequence Assessment Pt struggled to maintain wt bearing status. She needed constant cuing. Pt impulsive and needs instruction to slow down and focus on the task at hand. PT Short Term Goals Short Term Goals Time Frame: Aug 04, 2018 Transfers (B,C,W/C) (FIM): 4 Gait (FIM): 1 Distance (FIM): 1=up to 49 ft Gait Distance Comment: 15' Gait Level of Assist: 4 Gait Assistive Device: FWW PT Snf Goals Snf Goals PT Snf Goals Time Frame: Aug 14, 2018 Transfers (B,C,W/C) (FIM): 5 Gait (FIM): 2 Gait distance (FIM): 2=456-77 ft Distance: 75' Gait Level of Assist: 4 Gait Assistive Device: FWW PT Plan Treatment/Plan Treatment Plan: Continue Plan of Care Treatment Plan: Bed Mobility, Education, Functional Activity Renate, Functional Strength, Gait, Safety, Therapeutic Exercise, Transfers Treatment Duration: Aug 21, 2018 Frequency: 11 times per week Estimated Hrs Per Day: .5 hour per day Patient and/or Family Agrees t: Yes Time/GCodes Time In: 1410 Time Out: 142 Total Billed Treatment Time: 15 Total Billed Treatment visit, gait 15 min DONNIE LORA PT Jul 25, 2018 14:29
[2018-07-25 16:25] VITALS: BP 131/6
[2018-07-25 20:56] VITALS: BP 159/69
[2018-07-26 00:16] VITALS: BP 139/63
[2018-07-26 04:00] VITALS: BP 133/65
[2018-07-26 06:19] LABS: BASOPHILS % (AUTO) 0 % (0-10); EOSINOPHILS # (AUTO) 0.2 10^3/uL (0.0-0.3); EOSINOPHILS % (AUTO) 3 % (0-10); HEMATOCRIT 24 % (35-52); HEMOGLOBIN 7.7 G/DL (11.5-16.0); LYMPHOCYTES # (AUTO) 0.8 X 10^3 (1.0-4.0); LYMPHOCYTES % (AUTO) 12 % (12-44); MEAN CORPUSCULAR HEMOGLOBIN 29 PG (25-34); MEAN CORPUSCULAR HGB CONC 33 G/DL (32-36); MEAN CORPUSCULAR VOLUME 90 FL (80-99); MEAN PLATELET VOLUME 10.1 FL (7.4-10.4); MONOCYTES # (AUTO) 0.6 X 10^3 (0.0-1.0); MONOCYTES % (AUTO) 8 % (0-12); NEUTROPHILS # (AUTO) 5.6 X 10^3 (1.8-7.8); NEUTROPHILS % (AUTO) 77 % (42-75); PLATELET COUNT 137 10^3/uL (130-400); RED BLOOD COUNT 2.62 10^6/uL (4.35-5.85); RED CELL DISTRIBUTION WIDTH 12.6 % (10.0-14.5); WHITE BLOOD COUNT 7.3 10^3/uL (4.3-11.0)
[2018-07-26 06:56] LABS: BUN/CREATININE RATIO 23; CALCIUM 8.5 MG/DL (8.5-10.1); CARBON DIOXIDE 24 MMOL/L (21-32); CHLORIDE 107 MMOL/L (98-107); CREATININE SERUM 0.64 MG/DL (0.60-1.30); GFR ESTIMATED > 60; GLUCOSE 100 MG/DL (70-105); POTASSIUM 3.2 MMOL/L (3.6-5.0); SODIUM 140 MMOL/L (135-145)
[2018-07-26 08:00] VITALS: BP 162/71
--- NOTE | 2018-07-26 09:34 | Physical Therapy Daily Note ---
PT Daily Note-Current Subjective Pt reports mild (L) hip pain on arrival, with only a slight increase during treatment. Pain Numeric Pain Scale: 3 Location: Left Location Body Site: Hip Pain Description: Ache, Dull Mental Status Patient Orientation: Person, Place, Time, Situation Memory: 5 Transfers Therapy Code Descriptions/Definitions Functional [place] Measure: 0=Not Assessed/NA 4=Minimal Assistance 1=Total Assistance 5=Supervision or Setup 2=Maximal Assistance 6=Modified [place] 3=Moderate Assistance 7=Complete [place] Therapy Quality Codes: 6 Independent with activity with or without an assistive device 5 Patient requires set up or clean up by helper. Patient completes activity by themselves 4 Supervision or touching assist (CGA). [place] provide cues , steadying assist 3 The helper provides less than half the effort to complete the activity 2 The helper provides more than half the effort to complete the activity 1 Dependent. The helper does all the effort to complete an activity 7 Patient refused to complete or attempt activity 9 The patient did not perform the activity before the current illness or injury 88 Not attempted due to Medical conditions or safety concerns Transfers (B, C, W/C) (FIM): 4 Scootin Rollin Supine to/from Sit: 4 Sit to/from Stand: 4 Bed to/from Chair: 4 Weight Bearing Right Lower Extremity: Right Full Weight Bearing Left Lower Extremity: Left Partial Weight Bearing Gait Training Gait (FIM): 1 Distance (FIM): 1=up to 49 ft Distance: 30FT Gait Level of Assist: 3 Gait Persons Needed: 1 Gait Assistive Device: FWW Exercises Supine Ex: LE Protocol Supine Reps: 20 Assessment Current Status: Good Progress Pt needs constant cueing to maintain PWB and to stay within the walker. PT Short Term Goals Short Term Goals Time Frame: Aug 04, 2018 Transfers (B,C,W/C) (FIM): 4 Gait (FIM): 1 Distance (FIM): 1=up to 49 ft Gait Distance Comment: 15' Gait Level of Assist: 4 Gait Assistive Device: FWW PT Longterm Goals Longterm Goals PT Longterm Goals Time Frame: Aug 14, 2018 Transfers (B,C,W/C) (FIM): 5 Gait (FIM): 2 Gait distance (FIM): 7=134-46 ft Distance: 75' Gait Level of Assist: 4 Gait Assistive Device: FWW PT Plan Treatment/Plan Treatment Plan: Continue Plan of Care Treatment Plan: Bed Mobility, Education, Functional Activity Renate, Functional Strength, Gait, Safety, Therapeutic Exercise, Transfers Treatment Duration: Aug 21, 2018 Frequency: 11 times per week Estimated Hrs Per Day: .5 hour per day Patient and/or Family Agrees t: Yes Time/GCodes Time In: 0850 Time Out: 916 Total Billed Treatment Time: 27 Total Billed Treatment 1, ex 15, gt 12 BARRINGTON EDMONDSON PT Jul 26, 2018 09:33
[2018-07-26] MEDS: ENOXAPARIN 30 MG/0.3 ML (LOVENOX) SYR SC SCH (09:43)
[2018-07-26] MEDS: HYDROcodone/APAP 7.5 MG/325 MG (LORTAB, LORCET PLUS) TABLET PO PRN (09:43)
--- NOTE | 2018-07-26 11:37 | Discharge Summary-Hospitalist ---
Diagnosis/Chief Complaint Date of Admission Jul 22, 2018 at 14:21 Date of Discharge Discharge Diagnosis (1) Closed left hip fracture Status: Acute Assessment & Plan: Management per Ortho Plan for OR today Per NSQIP calculator risk is 2.6% for serious complication Medically optimized for surgery Defer ultimate risk assessment to ortho (2) Essential (primary) hypertension Status: Chronic Assessment & Plan: Well controlled, trend Discharge Summary Discharge Physical Exam Allergies: Coded Allergies: No Known Drug Allergies (Unverified , 02/06/12) Vitals & I&Os Vital Signs Date Time Temp Pulse Resp B/P (MAP) Pulse Ox O2 Delivery O2 Flow Rate FiO2 07/26/18 08:00 97.7 86 18 162/71 (101) 96 Room Air 07/26/18 07:47 0.00 General Appearance: No Apparent Distress, WD/WN, Chronically ill Respiratory: Chest Non Tender, Lungs Clear, Normal Breath Sounds, No Accessory Muscle Use, No Respiratory Distress Cardiovascular: Regular Rate, Rhythm, No Edema, No Gallop, No JVD, No Murmur, Normal Peripheral Pulses Neurologic/Psychiatric: Alert, Oriented x3, No Motor/Sensory Deficits, Normal Mood/Affect Hospital Course Hospital course: Patient was admitted for left hip fracture underwent an uncomplicated repair. Patient did well during the hospital course had no decompensation events and maintained on DVT prophylaxis and bowel regimen. She will be transitioned to swing bed for therapy and pain control. Labs (last 24 hrs) Laboratory Tests 07/26/18 05:48: White Blood Count 7.3, Red Blood Count 2.62L, Hemoglobin 7.7L, Hematocrit 24L, Mean Corpuscular Volume 90, Mean Corpuscular Hemoglobin 29, Mean Corpuscular Hemoglobin Concent 33, Red Cell Distribution Width 12.6, Platelet Count 137, Mean Platelet Volume 10.1, Neutrophils (%) (Auto) 77H, Lymphocytes (%) (Auto) 12 , Monocytes (%) (Auto) 8, Eosinophils (%) (Auto) 3, Basophils (%) (Auto) 0, Neutrophils # (Auto) 5.6, Lymphocytes # (Auto) 0.8L, Monocytes # (Auto) 0.6, Eosinophils # (Auto) 0.2, Basophils # (Auto) 0.0, Sodium Level 140, Potassium Level 3.2L, Chloride Level 107, Carbon Dioxide Level 24, Anion Gap 9, Blood Urea Nitrogen 15, Creatinine 0.64, Estimat Glomerular Filtration Rate > 60, BUN/ Creatinine Ratio 23, Glucose Level 100, Calcium Level 8.5 Microbiology 07/22/18 MRSA Screen - Final, Complete Patient resulted labs reviewed. Pending Labs Laboratory Tests 07/26/18 05:48: White Blood Count 7.3, Red Blood Count 2.62, Hemoglobin 7.7, Hematocrit 24, Mean Corpuscular Volume 90, Mean Corpuscular Hemoglobin 29, Mean Corpuscular Hemoglobin Concent 33, Red Cell Distribution Width 12.6, Platelet Count 137, Mean Platelet Volume 10.1, Neutrophils (%) (Auto) 77, Lymphocytes (%) (Auto) 12 , Monocytes (%) (Auto) 8, Eosinophils (%) (Auto) 3, Basophils (%) (Auto) 0, Neutrophils # (Auto) 5.6, Lymphocytes # (Auto) 0.8, Monocytes # (Auto) 0.6, Eosinophils # (Auto) 0.2, Basophils # (Auto) 0.0, Sodium Level 140, Potassium Level 3.2, Chloride Level 107, Carbon Dioxide Level 24, Anion Gap 9, Blood Urea Nitrogen 15, Creatinine 0.64, Estimat Glomerular Filtration Rate > 60, BUN/ Creatinine Ratio 23, Glucose Level 100, Calcium Level 8.5 Imaging: Reviewed Imaging Report Discussion & Recommendations Discharge Planning: <30 minutes discharge planning Discharge Home Medications: Active Scripts Active Reported Lisinopril-Hctz 20-12.5 mg Tab (Lisinopril/Hydrochlorothiazide) 1 Each Tablet 1 Tab PO DAILY Naproxen 500 Mg Tablet 500 Mg PO BID Sertraline HCl 100 Mg Tablet 100 Mg PO DAILY LAST FILLED #90 03-11-18 Gabapentin 300 Mg Capsule 300 Mg PO BID Atorvastatin Calcium 40 Mg Tablet 40 Mg PO DAILY LAST FILLED #90 03-11-18 Instructions to patient/family Please see electronic discharge instructions given to patient. Clinical Quality Measures DVT/VTE Risk/Contraindication: Risk Factor Score Per Nursin RFS Level Per Nursing on Admit: 4+=Very High Problem Qualifiers (1) Closed left hip fracture: Encounter type: initial encounter Qualified Codes: S72.002A - Fracture of unspecified part of neck of left femur, initial encounter for closed fracture CHRISTOPHER DOMINGUEZ DO Jul 26, 2018 11:37
[2018-07-26] MEDS ORDERED: LACTULOSE SYRUP 10GM/15ML (ENULOSE) 30ML UDC PO ONE (11:45)
[2018-07-26] MEDS ORDERED: DOCUSATE SODIUM 100 MG (COLACE) CAP PO ONE (11:45)
[2018-07-26] MEDS ORDERED: SENNA W/DOCUSATE (SENOKOT S) TABLET PO ONE (11:45)
--- NOTE | 2018-07-26 12:03 | Occupational Ther Daily Note ---
OT Current Status-Daily Note Subjective Pt alert, lying in bed. Pt agrees to therapy. No c/o pain. Mental Status/Objective Patient Orientation: Person, Place, Time, Situation Therapy Code Descriptions/Definitions Functional [place] Measure: 0=Not Assessed/NA 4=Minimal Assistance 1=Total Assistance 5=Supervision or Setup 2=Maximal Assistance 6=Modified [place] 3=Moderate Assistance 7=Complete [place] Other Treatment Pt completed 5 UE exercises against gravity to increase strength and activity tolerance for daily functional tasks. 3 sets 10 reps each exercise with recovery break between each set. Pt verbalized being fatigued after exercises. After therapy, pt lying in bed with call light/phone in reach. All needs met in room. OT Short Term Goals Short Term Goals Time Frame: Jul 31, 2018 Eating(FIM): 5 Grooming(FIM): 5 Bathing(FIM): 4 Upper Body Dressing(FIM): 5 Lower Body Dressing(FIM): 4 Toileting(FIM): 5 Transfers (B,C,W/C) (FIM): 4 Toilet/Commode Transfer(FIM): 4 Shower Transfer(FIM): 4 Additional Short Term Goals: 1-Demonstrate ADL Tasks, 2-Verbalize Understanding , 3-ImproveStrength/Ren[place] 1=Demonstrate adherence to instructed precautions during ADL tasks. 2=Patient will verbalize/demonstrate understanding of assistive devices/ modifications for ADL. 3=Patient will improve strength/tolerance for activity to enable patient to perform ADL's. OT Order Packer Goals Order Packer Goals Time Frame: Aug 07, 2018 Eating (FIM): 6 Grooming(FIM): 6 Bathing(FIM): 5 Upper Body Dressing(FIM): 6 Lower Body Dressing(FIM): 5 Toileting(FIM): 6 Transfers (B,C,W/C) (FIM): 6 Toilet/Commode Transfer(FIM): 6 Shower Transfer(FIM): 5 Additional Goals: 1-Demonstrate ADL Tasks, 2-Verbalize Understanding, 3- ImproveStrength/Renate 1=Demonstrate adherence to instructed precautions during ADL tasks. 2=Patient will verbalize/demonstrate understanding of assistive devices/ modifications for ADL. 3=Patient will improve strength/tolerance for activity to enable patient to perform ADL's. OT Education/Plan Discharge Recommendations Plan/Recommendations: Continue POC Treatment Plan/Plan of Care Patient would benefit from OT for education, treatment and training to promote independence in ADL's, mobility, safety and/or upper extremity function for ADL' s. Plan of Care: ADL Retraining, Functional Mobility, UE Funct Exercise/Act Treatment Duration: Aug 07, 2018 Frequency: At least 5 of 7 days/Wk (IRF) Estimated Hrs Per Day: 1.5 hours per day Agreement: Yes Rehab Potential: Good Time/GCodes Start Time: 11:45 Stop Time: 12:00 Total Time Billed (hr/min): 15 Billed Treatment Time 1 visit-EX 1 (15 min) HUSSEIN CAPPS Jul 26, 2018 12:03
[2018-07-26] MEDS ORDERED: DOCUSATE SODIUM 100 MG (COLACE) CAP PO SCH (21:00)
[2018-07-26] MEDS ORDERED: SENNA W/DOCUSATE (SENOKOT S) TABLET PO SCH (21:00)
[2018-07-26] MEDS ORDERED: LACTULOSE SYRUP 10GM/15ML (ENULOSE) 30ML UDC PO SCH (21:00)
[2018-07-30] MEDS ORDERED: APIX2.5T PO (10:56)
[2018-07-30] MEDS ORDERED: HYDR-34 PO (10:56)
== END 2018-07-26 11:50 | disposition swing bed (61) | DRG 470 ==
LOC: EDUNIT# 13:07 → ER 13:08 → 4TH 14:21
PROVIDERS: ADMIT Orthopaedic Surgery; ATTEND Orthopaedic Surgery
PROC: 0SRS0JZ Replacement of Left Hip Joint, Femoral Surface with Synthetic Substitute, Open Approach (ICD-10-PCS; principal; 2018-07-23 07:30)
DX: S72.002A Fracture of unspecified part of neck of left femur, initial encounter for closed fracture (principal); D62 Acute posthemorrhagic anemia; I10 Essential (primary) hypertension; F32.9 Major depressive disorder, single episode, unspecified; E87.6 Hypokalemia; W18.39XA Other fall on same level, initial encounter; Y93.01 Activity, walking, marching and hiking
CPT/HCPCS: 36415; 51702; 71045; 73501; 80048; 80053; 81000; 85007; 85025; 85027; 87081; 93005; 94664; 96374; 96375

== ENCOUNTER 2018-07-26 11:47 | Inpatient (IN) | payer MEDICARE, OTHER ==
[~2018-07-26] VITALS: Ht 170.2 cm; Wt 78.0 kg
[~2018-07-26 11:47] MED LIST changes: +ATOR20TA66 PO; +ATOR40TA70 PO; +GABA-488 PO; +GABA250S2 PO; +LISI-556 PO; +LISI1TAB8 PO; +NAPR-1071 PO; +NAPR-915 PO; +SERT100T8 PO; +SERT50TA2 PO
[2018-07-26] MEDS ORDERED: DOCUSATE SODIUM 100 MG (COLACE) CAP PO ONE (12:00)
[2018-07-26] MEDS ORDERED: ACETAMINOPHEN 325 MG TABLET PO PRN (12:00)
[2018-07-26] MEDS ORDERED: morphine INJ 4 MG/ML 1 ML (VIAL/SYRINGE) IV PRN (12:00)
[2018-07-26] MEDS ORDERED: CATHETER FLUSH 10 ML SYR IV PRN (12:00)
[2018-07-26] MEDS ORDERED: ONDANSETRON 4 MG/2 ML (SDV) Z0FRAN IV PRN (12:00)
[2018-07-26] MEDS ORDERED: LACTATED RINGERS 1,000 ML IV PRN (12:00)
[2018-07-26] MEDS ORDERED: LACTULOSE SYRUP 10GM/15ML (ENULOSE) 30ML UDC PO NR (12:45)
[2018-07-26] MEDS ORDERED: SENNA W/DOCUSATE (SENOKOT S) TABLET PO NR (12:45)
--- NOTE | 2018-07-26 12:50 | NUR ---
THIS IS FROM PREVIOUS ACCOUNT; PATIENT WILL NEED FOR DISCHARGE PLANNING; Swing Bed Note: Qualifies for swing bed for continued need for Physical et Occupational therapies to return to prior level of independent functioning. Shana reports that she lives at home alone but that her niece will be staying with her when she discharges from the hospital for a short time. She reports that she has 2 steps that she has in the back of her house et she reports that she will be using them when she discharges. She also reports that she has a tub that she would have to step into and does not have grab bars nor a stool/shower chair to set on either. She reports that she does not have a toilet riser and will also need a walker at discharge. I will update therapy on our conversation and if patient stays on swing bed and then discharges to home I will help set up any recommended equipment needs that therapy recommends. Will admit to swing bed today. Thank you for this referral!
--- NOTE | 2018-07-26 12:51 | NUR ---
Admission Drug Regimen Review: Date: 07/26/18 Time: 1251 Review Completed, No Issues found
[2018-07-26 13:21] VITALS: BP 172/69
--- NOTE | 2018-07-26 13:23 | Physical Therapy Evaluation ---
PT Evaluation-General Medical Diagnosis Admission Date Jul 26, 2018 at 11:54 Medical Diagnosis: (L) femoral neck fracture Onset Date: Jul 22, 2018 Therapy Diagnosis Therapy Diagnosis: limited mobility Height/Weight Height (Feet): 5 Height (Inches): 7.00 Weight (Pounds): 172 Weight (Ounces): 0.0 Weight Bear Status Right Lower Extremity: Right Full Weight Bearing Left Lower Extremity: Left Partial Weight Bearing Referral Physician: Taylor Malloy DO Reason for Referral: Evaluation/Treatment Medical History Current History [place] the [place] resulting in a (L) femoral neck fx. Pt underwent (L) ASA on 07/[address] Rosas. Reviewed History: Yes Social History Home: Single Level Current Living Status: Alone Entry Into Home: Stairs With Railing PT Steps Into Home: 3 PT Steps Inside Home: 0 Prior/Core FIM Prior Level of Function Therapy Code Descriptions/Definitions Functional [place] Measure: 0=Not Assessed/NA 4=Minimal Assistance 1=Total Assistance 5=Supervision or Setup 2=Maximal Assistance 6=Modified [place] 3=Moderate Assistance 7=Complete [place] Therapy Quality Codes: 6 Independent with activity with or without an assistive device 5 Patient requires set up or clean up by helper. Patient completes activity by themselves 4 Supervision or touching assist (CGA). [place] provide cues , steadying assist 3 The helper provides less than half the effort to complete the activity 2 The helper provides more than half the effort to complete the activity 1 Dependent. The helper does all the effort to complete an activity 7 Patient refused to complete or attempt activity 9 The patient did not perform the activity before the current illness or injury 88 Not attempted due to Medical conditions or safety concerns Functional Abilities and Goals: Independent: Patient completed the activities by him/herself, with or without an assistive device, with no assistance from a helper. Needed Some Help: Patient needed partial assistance from another person to complete activities. Dependent: A helper completed the activities for the patient. Unknown: Not Applicable: Bed Mobility: 6 Transfers (B,C,W/C) (FIM): 6 Gait: 7 Stairs: 6 Indoor Mobility (Ambulation): Independent Stairs: Independent Prior Devices Use: None Prior Device Use: railing for steps PT Evaluation-Current Subjective Pt denies lower extremity pain. Objective Patient Orientation: Person, Place, Time, Situation Problem Solving: Good ROM/Strength ROM Upper Extremities WFL ROM Lower Extremities WFL Strength Upper Extremities WFL Strenght Lower Extremities WFL Neuromuscular (Tone, Coordination, Reflexes) intact Sensory Vision: Wears Glasses Hearing: Functional Sensation Right Lower Extremit: Intact Sensation Left Lower Extremity: Intact Transfers Therapy Code Descriptions/Definitions Functional [place] Measure: 0=Not Assessed/NA 4=Minimal Assistance 1=Total Assistance 5=Supervision or Setup 2=Maximal Assistance 6=Modified [place] 3=Moderate Assistance 7=Complete [place] Therapy Quality Codes: 6 Independent with activity with or without an assistive device 5 Patient requires set up or clean up by helper. Patient completes activity by themselves 4 Supervision or touching assist (CGA). [place] provide cues , steadying assist 3 The helper provides less than half the effort to complete the activity 2 The helper provides more than half the effort to complete the activity 1 Dependent. The helper does all the effort to complete an activity 7 Patient refused to complete or attempt activity 9 The patient did not perform the activity before the current illness or injury 88 Not attempted due to Medical conditions or safety concerns Transfers (B, C, W/C) (FIM): 3 Scootin Rollin Roll Left to Right (QC): 3 Supine to/from Sit: 3 Sit to/from Stand: 5 Sit to Lying (QC): 3 Lying to Sitting/Side of Bed(Q: 3 Sit to Stand (QC): 5 Gait Does the Patient Walk?: Yes Mode of Locomotion: Walk Anticipated Mode of Locomotion: Walk Gait (FIM): 1 Distance (FIM): 1=up to 49 ft Walk 10 feet (QC): 1 Distance: 20ft Gait Level of Assist: 1 Gait Persons Needed: 1 Gait Assistive Device: FWW Wheelchair Training Does the Pt Use a Wheelchair?: No Stairs Stairs (FIM): 88 If not tested on admit;explain Pt is currently partial wt bearing, and is struggling with proper wt bearing. Balance Sitting Static: Normal Sitting Dynamic: Normal Standing Static: Good Standing Dynamic: Good Assessment/Needs Pt has good stability during ambulation and transfers. She struggles to perform the PWB correctly, requiring constant cues to stay in walker and maintain PWB. Rehab Potential: Good PT Short Term Goals Short Term Goals Time Frame: Aug 09, 2018 Transfers (B,C,W/C) (FIM): 6 Gait (FIM): 5 Distance (FIM): 3=150 ft Gait Distance Comment: 150ft Gait Level of Assist: 5 Gait Assistive Device: FWW Stairs (FIM): 2 # of Steps: 4 Stairs Level of Assist: 2 PT Plan Problem List Problem List: Activity Tolerance, Functional Strength, Safety, Balance, Gait, Transfer Treatment/Plan Treatment Plan: Continue Plan of Care Treatment Plan: Bed Mobility, Education, Functional Activity Renate, Functional Strength, Gait, Safety, Therapeutic Exercise, Transfers Treatment Duration: Aug 09, 2018 Frequency: 11 times per week Estimated Hrs Per Day: .5 hour per day Patient and/or Family Agrees t: Yes Time/GCodes Time In: 1255 Time Out: 1310 Total Billed Treatment Time: 15 Total Billed Treatment 1, lizzy 15 BARRINGTON EDMONDSON PT Jul 26, 2018 13:23
--- NOTE | 2018-07-26 13:59 | Occupational Therapy Eval ---
OT Evaluation-General/PLF Medical Diagnosis Admission Date Jul 26, 2018 at 11:54 Medical Diagnosis: (L) femoral neck fracture/ASA Onset Date: Jul 22, 2018 Therapy Diagnosis Therapy Diagnosis: Weakness, Decreased ADL skills Height/Weight Height (Feet): 5 Height (Inches): 7.00 Weight (Pounds): 172 Weight (Ounces): 0.0 Referral Physician: Taylor Malloy DO Referral Reason: Activity Tolerance, Self Care, Evaluation/Treatment, Strengthening/ROM Medical History Current History Pt. fell out in community. Sustained a femoral neck fx. Reviewed History: Yes Social History Home: Single Level Current Living Status: Alone Entry Into Home: Stairs With Railing Steps Into Home: 3 Steps Inside Home: 0 ADL-Prior Level of Function Therapy Code Descriptions/Definitions Functional [place] Measure: 0=Not Assessed/NA 4=Minimal Assistance 1=Total Assistance 5=Supervision or Setup 2=Maximal Assistance 6=Modified [place] 3=Moderate Assistance 7=Complete [place] Therapy Quality Codes: 6 Independent with activity with or without an assistive device 5 Patient requires set up or clean up by helper. Patient completes activity by themselves 4 Supervision or touching assist (CGA). [place] provide cues , steadying assist 3 The helper provides less than half the effort to complete the activity 2 The helper provides more than half the effort to complete the activity 1 Dependent. The helper does all the effort to complete an activity 7 Patient refused to complete or attempt activity 9 The patient did not perform the activity before the current illness or injury 88 Not attempted due to Medical conditions or safety concerns Functional Abilities and Goals: Independent: Patient completed the activities by him/herself, with or without an assistive device, with no assistance from a helper. Needed Some Help: Patient needed partial assistance from another person to complete activities. Dependent: A helper completed the activities for the patient. Unknown: Not Applicable: ADL PLOF Comments Pt. states that she was fully independent with all ADL skills previous to this fall. Self Care: Independent Functional Cognition: Independent DME/Equipment: Tub/Shower DME/Equipment Comments Pt. has a cane that she uses but does not have any other equipment at home. Drive Self: Yes OT Current Status Subjective No pain reported. Appearance Pt. is up in chair with family present. Has already been seen by occupational therapy this a.m., but will need to be evaluated for SWB status. Pt. agrees to this. Mental Status/Objective Patient Orientation: Person, Place ADL-Treatment Eating (FIM): 6 Eating (QC): 6 Grooming (FIM): 3 (Please see note) Lower Body Dressing (FIM): 2 Lower Body Dressing (QC): 2 On/Off Footwear (QC): 2 Transfers (B, C, W/C) (FIM): 4 Pt. has already been seen by occupational therapy this a.m. Agrees to another treatment and at this time, OT/PT co-treat due to pt's fatigue level. Pt. declines bathing and states that she does not need to toilet. PT facilitates proper transfer techniques and ambulation methods. Ambulated to sink in bathroom and pt. agrees to comb her hair standing at sink. Pt. able to balance at sink approximately 5 minutes while holding walker. However, pt. unable to let go of walker while at sink due to balance concerns, and therefore, OT assisted with combing hair. Pt. declines brushing her teeth at this time too. Pt. requires cues for safety and requires mod assist for sit-supine while transferring back to bed. All needs are met. Education OT Patient Education: Correct positioning, Modified ADL techniques, Progress toward Goal/Update tx plan, Purpose of tx/functional activities, Reviewed precautions, Rehab process, Transfer techniques Teaching Recipient: Patient Teaching Methods: Demonstration, Discussion Response to Teaching: Verbalize Understanding, Return Demonstration OT Short Term Goals Short Term Goals Time Frame: Aug 02, 2018 Eating(FIM): 5 Grooming(FIM): 4 Bathing(FIM): 4 (with AE) Upper Body Dressing(FIM): 5 Lower Body Dressing(FIM): 4 (with AE) Toileting(FIM): 5 Transfers (B,C,W/C) (FIM): 5 Toilet/Commode Transfer(FIM): 5 Shower Transfer(FIM): 5 Additional Short Term Goals: 1-Demonstrate ADL Tasks, 2-Verbalize Understanding , 3-ImproveStrength/Renate 1=Demonstrate adherence to instructed precautions during ADL tasks. 2=Patient will verbalize/demonstrate understanding of assistive devices/ modifications for ADL. 3=Patient will improve strength/tolerance for activity to enable patient to perform ADL's. OT Nursing Home Goals Dental Specialist Goals Time Frame: Aug 09, 2018 Eating (FIM): 7 Eating (QC): 6 Groomin Oral Hygiene (QC): 6 Bathing(FIM): 5 Shower/Bathe Self (QC): 5 Upper Body Dressing(FIM): 6 Upper Body Dressing (QC): 6 Lower Body Dressing(FIM): 6 Lower Body Dressing (QC): 6 On/Off Footwear (QC): 6 Toileting(FIM): 6 Toileting Hygiene (QC): 6 Transfers (B,C,W/C) (FIM): 6 Toilet/Commode Transfer(FIM): 6 Toilet/Commode Transfer (QC): 6 Shower Transfer(FIM): 5 Additional Goals: 1-Demonstrate ADL Tasks, 2-Verbalize Understanding, 3- ImproveStrength/Renate 1=Demonstrate adherence to instructed precautions during ADL tasks. 2=Patient will verbalize/demonstrate understanding of assistive devices/ modifications for ADL. 3=Patient will improve strength/tolerance for activity to enable patient to perform ADL's. OT Education/Plan Problem List/Assessment Assessment: Decreased Activ Tolerance, Impaired I ADL's, Impaired Self-Care Skills Discharge Recommendations Plan/Recommendations: Continue POC Therapy D/C Recommendations: Home w/ Family Support, Occupational Therapy Home Care Equpiment Recommendations-D/C: Extended Bath Bench, Hip Kit Comment Pt. will need a walker and possibly a BSC or toilet riser upon discharge. Treatment Plan/Plan of Care Treatment,Training & Education: Yes Patient would benefit from OT for education, treatment and training to promote independence in ADL's, mobility, safety and/or upper extremity function for ADL' s. Plan of Care: ADL Retraining, Functional Mobility, UE Funct Exercise/Act Treatment Duration: Aug 09, 2018 Frequency: 5 times per week Estimated Hrs Per Day: .25 hour per day Agreement: Yes Rehab Potential: Good Time/GCodes Start Time: 12:55 Stop Time: 13:10 Total Time Billed (hr/min): 15 Billed Treatment Time 1, EVM Co-treat with PT. Please see above for designated roles. NORA LEONARDO OT Jul 26, 2018 13:59
--- NOTE | 2018-07-26 14:08 | NUR ---
Initial visit with pt and her younger daughter. Offered active listening and compassionate presence. Pt is Religion. States she anticipates going to 2nd floor for rehab.
[2018-07-26] MEDS: HYDROcodone/APAP 7.5 MG/325 MG (LORTAB, LORCET PLUS) TABLET PO PRN (15:29)
[2018-07-26] MEDS ORDERED: DOCUSATE SODIUM 100 MG (COLACE) CAP PO NR (15:40)
[2018-07-26 16:10] VITALS: BP 132/65
[2018-07-26] MEDS ORDERED: SIMETHICONE 80 MG (MYLICON) CHEW PO PRN (17:00)
[2018-07-26 18:00] VITALS: BP_SYST 130; BP_SYST 136; BP_DIAS 62; BP_DIAS 68
[2018-07-26] MEDS: LACTULOSE SYRUP 10GM/15ML (ENULOSE) 30ML UDC PO SCH (20:16)
[2018-07-26] MEDS: ENOXAPARIN 30 MG/0.3 ML (LOVENOX) SYR SC SCH (20:16)
[2018-07-26] MEDS: GABAPENTIN 300 MG (NEURONTIN) CAP PO SCH (20:17)
[2018-07-26] MEDS: DOCUSATE SODIUM 100 MG (COLACE) CAP PO SCH (20:17)
[2018-07-26] MEDS: SENNA W/DOCUSATE (SENOKOT S) TABLET PO SCH (20:17)
[2018-07-27 06:03] VITALS: BP 134/66
[2018-07-27] MEDS: LACTULOSE SYRUP 10GM/15ML (ENULOSE) 30ML UDC PO SCH ×2 (07:54→20:28)
[2018-07-27] MEDS: DOCUSATE SODIUM 100 MG (COLACE) CAP PO SCH ×2 (07:54→20:27)
[2018-07-27] MEDS: SENNA W/DOCUSATE (SENOKOT S) TABLET PO SCH ×2 (07:55→20:28)
--- NOTE | 2018-07-27 08:00 | NUR ---
CONFUSED. FOUND AMBULATING TO BATHROOM. DID SET BED ALARM OFF, BUT ALREADY HALF WAY TO BATHROOM BEFORE IT SOUNDED. VERY IMPULSIVE AND DOES NOT APPEAR TO UNDERSTAND HOW TO USE WALKER.
[2018-07-27] MEDS: SERTRALINE 100 MG (ZOLOFT) TAB PO SCH (09:09)
[2018-07-27] MEDS: GABAPENTIN 300 MG (NEURONTIN) CAP PO SCH ×2 (09:09→20:27)
[2018-07-27] MEDS: ENOXAPARIN 30 MG/0.3 ML (LOVENOX) SYR SC SCH ×2 (09:10→20:27)
--- NOTE | 2018-07-27 10:00 | NUR ---
IN CHAIR WITH CHAIR ALARM ON. HAS SET OFF NUMEROUS TIMES. FOUND IN BATHROOM WITH CHAIR ALARM SOUNDING WHEN I LEFT ANOTHER ROOM. DID NOT USE WALKER TO GET TO BATHROOM. RETURNED TO BED FOR SAFETY WITH BED ALARM ON.
--- NOTE | 2018-07-27 11:36 | Progress Note-Hospitalist ---
Subjective HPI/CC On Admission Date Seen by Provider: Jul 27, 2018 Time Seen by Provider: 10:40 Subjective/Events-last exam Patient doing well Pain is controlled Blood pressure stable BM+ Checked meds and labs Review of Systems Musculoskeletal: leg pain Objective Exam Vital Signs Vital Signs Date Time Temp Pulse Resp B/P (MAP) Pulse Ox O2 Delivery O2 Flow Rate FiO2 07/27/18 06:03 99.2 87 18 134/66 (88) 96 Room Air Capillary Refill : Less Than 3 SecondsLess Than 3 Seconds General Appearance: No Apparent Distress, WD/WN, Chronically ill Respiratory: Chest Non Tender, Lungs Clear, Normal Breath Sounds, No Accessory Muscle Use, No Respiratory Distress Cardiovascular: Regular Rate, Rhythm, No Edema, No Gallop, No JVD, No Murmur, Normal Peripheral Pulses Neurologic/Psychiatric: Alert, Oriented x3, No Motor/Sensory Deficits, Normal Mood/Affect Skin: Normal Color, Warm/Dry Results/Procedures Lab Patient resulted labs reviewed. Assessment/Plan Assessment and Plan Assess & Plan/Chief Complaint Assessment: Hip fracture status post uncomplicated repair HTN Debility Plan: Maintain swing bed status Diagnosis/Problems Diagnosis/Problems (1) Hip fracture requiring operative repair Status: Resolved Resolution Date/Time: 07/27/18 @ 11:48 (2) Essential (primary) hypertension Status: Chronic Clinical Quality Measures DVT/VTE Risk/Contraindication: Risk Factor Score Per Nursin CHRISTOPHER DOMINGUEZ DO Jul 27, 2018 11:36
--- NOTE | 2018-07-27 12:00 | NUR ---
REMAINS CONFUSED AND HAS ATTEMPTED NUMEROUS TIMES TO GET OUT OF BED WITHOUT CALLING FOR HELP. HAVE BEEN TOILETING Q2 HOURS, BUT PT DOES NOT SEEM TO KNOW WHY SHE IS GETTING UP.
--- NOTE | 2018-07-27 14:00 | NUR ---
FAMILY HERE EARLIER. A LITTLE MORE ORIENTED AT THIS TIME.
--- NOTE | 2018-07-27 16:41 | NUR ---
DAUGHTER FIDEL CALLED AND IS REQUESTING THE FAMILY MEMBER IN THE ROOM TO BE ASKED TO LEAVE, STATES SHE IS POA. UNABLE TO LOCATE DPOA PAPERS OF ANY KIND IN CHART OR OLD MED RECORDS. ADMINISTRATION NOTIFIED. FIDEL ASKED TO FAX COPIES OF DPOA PAPERS.
--- NOTE | 2018-07-27 17:00 | NUR ---
VISITOR IN ROOM IS YELLING AT PT TO NOT ANSWER HER PHONE IT IS HER DAUGHTER FIDEL. PT YELLING BACK. WHEN THIS PUBLICATION DISTRIBUTOR ENTERED ROOM, PHONE NO LONGER RINGING AND VISITOR LEFT. FOUND PHONE OFF HOOK.
--- NOTE | 2018-07-27 17:08 | NUR ---
DPOA PAPERS REC'D VIA FAX. DTR FIDEL CALLED AND IS REQUESTING PT BE CHANGED TO CONFIDENTIAL, NO VISITORS, AND PASSWORD CHANGED. TRANSFERRED TO ROOM 423. NO VISITOR SIGN TO DOOR. CHANGED TO CONFIDENTIAL PATIENT. ACCOUNT SUPPORT ANALYST NOTIFIED.
[2018-07-27 18:00] VITALS: BP 137/65
[2018-07-28 06:00] VITALS: BP 147/70
[2018-07-28] MEDS: GABAPENTIN 300 MG (NEURONTIN) CAP PO SCH ×2 (08:37→20:00)
[2018-07-28] MEDS: SERTRALINE 100 MG (ZOLOFT) TAB PO SCH (08:37)
[2018-07-28] MEDS: DOCUSATE SODIUM 100 MG (COLACE) CAP PO SCH ×2 (08:37→19:59)
[2018-07-28] MEDS: LACTULOSE SYRUP 10GM/15ML (ENULOSE) 30ML UDC PO SCH ×2 (08:37→19:59)
[2018-07-28] MEDS: HYDROcodone/APAP 7.5 MG/325 MG (LORTAB, LORCET PLUS) TABLET PO PRN (08:37)
[2018-07-28] MEDS: ENOXAPARIN 30 MG/0.3 ML (LOVENOX) SYR SC SCH ×2 (08:37→19:59)
[2018-07-28] MEDS: SENNA W/DOCUSATE (SENOKOT S) TABLET PO SCH ×2 (08:38→19:59)
--- NOTE | 2018-07-28 09:42 | Physical Therapy Daily Note ---
PT Daily Note-Current Subjective Agreeable to PT. No complaints. Reports she sat up earlier today. Mental Status Patient Orientation: Person, Place Transfers Therapy Code Descriptions/Definitions Functional [place] Measure: 0=Not Assessed/NA 4=Minimal Assistance 1=Total Assistance 5=Supervision or Setup 2=Maximal Assistance 6=Modified [place] 3=Moderate Assistance 7=Complete [place] Therapy Quality Codes: 6 Independent with activity with or without an assistive device 5 Patient requires set up or clean up by helper. Patient completes activity by themselves 4 Supervision or touching assist (CGA). [place] provide cues , steadying assist 3 The helper provides less than half the effort to complete the activity 2 The helper provides more than half the effort to complete the activity 1 Dependent. The helper does all the effort to complete an activity 7 Patient refused to complete or attempt activity 9 The patient did not perform the activity before the current illness or injury 88 Not attempted due to Medical conditions or safety concerns Transfers (B, C, W/C) (FIM): 4 Supine to/from Sit: 4 Sit to/from Stand: 4 Sit to Lying (QC): 4 Sit to Stand (QC): 4 min to CGA for transfers for safety. Skilled cues to sequence. Weight Bearing Right Lower Extremity: Right Full Weight Bearing Left Lower Extremity: Left Weight Bearing/Tolerated Reviewed acute chart and Dr. Rosas wrote on 07/24/18 that she may WBAT post operatively. Spoke with Dr. Malloy this date (07/28/2018) at 0935 and she confirmed WBAT; she suggested the PWB status carried from the acute acount prior to surgery. Gait Training Does the Patient Walk?: Yes Gait (FIM): 2 Distance (FIM): 6=723-38 ft Distance: 50 ft Gait Assistive Device: FWW Pt was thought to be PWB during treatment; therefore walked a short distance only as she was not maintaining PWB status. Post review of records and discussion with Dr. Malloy, it is found that she is WBAT. Will progress giat next visit at a WBAT level. Treatments Pt toileted with CGA for toilet transfers and assist for matilda care. Stood at sink to wash her hands with CGA. Pt up in chair with needs met and chair alarm activated post treatment. Assessment Current Status: Good Progress Progressing well. Transfers improved. Pt likely to increase gait as it is determined now that she may WBAT. PT Short Term Goals Short Term Goals Time Frame: Aug 09, 2018 Transfers (B,C,W/C) (FIM): 5 Gait (FIM): 5 Distance (FIM): 3=150 ft Gait Distance Comment: 150ft Gait Level of Assist: 5 Gait Assistive Device: FWW Stairs (FIM): 2 # of Steps: 4 Stairs Level of Assist: 2 PT Assisted Goals Assisted Goals Rollin PT Plan Problem List Problem List: Activity Tolerance, Functional Strength, Safety, Balance, Gait, Transfer, Bed Mobility Treatment/Plan Treatment Plan: Continue Plan of Care Treatment Plan: Bed Mobility, Education, Functional Activity Renate, Functional Strength, Gait, Safety, Therapeutic Exercise, Transfers Treatment Duration: Aug 09, 2018 Frequency: 11 times per week Estimated Hrs Per Day: .5 hour per day Patient and/or Family Agrees t: Yes Safety Risks/Education Patient Education: Gait Training, Transfer Techniques, Safety Issues Teaching Recipient: Patient Teaching Methods: Demonstration, Discussion Response to Teaching: Reinforcement Needed Time/GCodes Time In: 905 Time Out: 925 Total Billed Treatment Time: 20 Total Billed Treatment visit GT 20 HUSSEIN TOMLINSON PT Jul 28, 2018 09:42
--- NOTE | 2018-07-28 10:06 | NUR ---
CM/SS attempted to contact patient's daughter Nancy at [phone], there was no answer, will attempt at later time.
--- NOTE | 2018-07-28 10:14 | Progress Note-Hospitalist ---
Subjective HPI/CC On Admission Date Seen by Provider: Jul 28, 2018 Time Seen by Provider: 09:00 Subjective/Events-last exam Patient doing well Physical therapy working with her Will be moving to her daughter's house out of state Pain is controlled Bowels moving We'll check labs in a.m. Review of Systems General: Fatigue Musculoskeletal: leg pain Objective Exam Vital Signs Vital Signs Date Time Temp Pulse Resp B/P (MAP) Pulse Ox O2 Delivery O2 Flow Rate FiO2 07/28/18 06:00 98.0 88 18 147/70 (95) 91 Room Air Capillary Refill : Less Than 3 SecondsLess Than 3 Seconds General Appearance: No Apparent Distress, WD/WN, Chronically ill Respiratory: Chest Non Tender, Lungs Clear, Normal Breath Sounds, No Accessory Muscle Use, No Respiratory Distress Cardiovascular: Regular Rate, Rhythm, No Edema, No Gallop, No JVD, No Murmur, Normal Peripheral Pulses Neurologic/Psychiatric: Alert, Oriented x3, No Motor/Sensory Deficits, Normal Mood/Affect Results/Procedures Lab Patient resulted labs reviewed. Assessment/Plan Assessment and Plan Assess & Plan/Chief Complaint Assessment: Hip fracture status post uncomplicated repair HTN Debility Plan: Maintain swing bed status Upon discharge she will move out of state with her daughter Diagnosis/Problems Diagnosis/Problems (1) Hip fracture requiring operative repair Status: Resolved Resolution Date/Time: 07/27/18 @ 11:48 (2) Essential (primary) hypertension Status: Chronic Clinical Quality Measures DVT/VTE Risk/Contraindication: Risk Factor Score Per Nursin CHRISTOPHER DOMINGUEZ DO Jul 28, 2018 10:14
--- NOTE | 2018-07-28 14:01 | NUR ---
CM/SS after speaking with Luis Manuel, got a correct number for Nancy Canseco of [phone]. Nancy is the DPOA for the patient and is wanting to move her to [place] with her for her continued care as there is no one able to be with her in her home in [place]. Nancy was unsure if patient would do better flying or traveling in car. She also did not think that she could be here to get the patient prior to the or Aug. Will relay this information to and then get with Nancy again for further planning.
--- NOTE | 2018-07-28 15:23 | Occupational Ther Daily Note ---
OT Current Status-Daily Note Subjective Pt alert, lying in bed watching tv. Pt agrees to therapy. No c/o pain. Mental Status/Objective Patient Orientation: Person, Confused Therapy Code Descriptions/Definitions Functional [place] Measure: 0=Not Assessed/NA 4=Minimal Assistance 1=Total Assistance 5=Supervision or Setup 2=Maximal Assistance 6=Modified [place] 3=Moderate Assistance 7=Complete [place] ADL-Treatment Therapy Code Descriptions/Definitions Functional [place] Measure: 0=Not Assessed/NA 4=Minimal Assistance 1=Total Assistance 5=Supervision or Setup 2=Maximal Assistance 6=Modified [place] 3=Moderate Assistance 7=Complete [place] Therapy Quality Codes: 6 Independent with activity with or without an assistive device 5 Patient requires set up or clean up by helper. Patient completes activity by themselves 4 Supervision or touching assist (CGA). [place] provide cues , steadying assist 3 The helper provides less than half the effort to complete the activity 2 The helper provides more than half the effort to complete the activity 1 Dependent. The helper does all the effort to complete an activity 7 Patient refused to complete or attempt activity 9 The patient did not perform the activity before the current illness or injury 88 Not attempted due to Medical conditions or safety concerns Other Treatment Worked on bed mobility and strengthening UE. Pt required skilled cues to sequence scooting self up in bed. Pt unable to coordinate UE/LE to pull self up in bed, assist needed. Pt then was able to don R sock and assist to don L sock in bed. After therapy pt lying in bed with call light/phone in reach. All needs met in room. OT Short Term Goals Short Term Goals Time Frame: Aug 02, 2018 Eating(FIM): 5 Grooming(FIM): 4 Bathing(FIM): 4 (with AE) Upper Body Dressing(FIM): 5 Lower Body Dressing(FIM): 4 (with AE) Toileting(FIM): 5 Transfers (B,C,W/C) (FIM): 5 Toilet/Commode Transfer(FIM): 5 Shower Transfer(FIM): 5 Additional Short Term Goals: 1-Demonstrate ADL Tasks, 2-Verbalize Understanding , 3-ImproveStrength/Renate 1=Demonstrate adherence to instructed precautions during ADL tasks. 2=Patient will verbalize/demonstrate understanding of assistive devices/ modifications for ADL. 3=Patient will improve strength/tolerance for activity to enable patient to perform ADL's. OT Half-Way Goals Half-Way Goals Time Frame: Aug 09, 2018 Eating (FIM): 7 Eating (QC): 6 Groomin Oral Hygiene (QC): 6 Bathing(FIM): 5 Shower/Bathe Self (QC): 5 Upper Body Dressing(FIM): 6 Upper Body Dressing (QC): 6 Lower Body Dressing(FIM): 6 Lower Body Dressing (QC): 6 On/Off Footwear (QC): 6 Toileting(FIM): 6 Toileting Hygiene (QC): 6 Transfers (B,C,W/C) (FIM): 6 Toilet/Commode Transfer(FIM): 6 Toilet/Commode Transfer (QC): 6 Shower Transfer(FIM): 5 Additional Goals: 1-Demonstrate ADL Tasks, 2-Verbalize Understanding, 3- ImproveStrength/Renate 1=Demonstrate adherence to instructed precautions during ADL tasks. 2=Patient will verbalize/demonstrate understanding of assistive devices/ modifications for ADL. 3=Patient will improve strength/tolerance for activity to enable patient to perform ADL's. OT Education/Plan Discharge Recommendations Plan/Recommendations: Continue POC Treatment Plan/Plan of Care Patient would benefit from OT for education, treatment and training to promote independence in ADL's, mobility, safety and/or upper extremity function for ADL' s. Plan of Care: ADL Retraining, Functional Mobility, UE Funct Exercise/Act Treatment Duration: Aug 09, 2018 Frequency: 5 times per week Estimated Hrs Per Day: .25 hour per day Agreement: Yes Rehab Potential: Good Time/GCodes Start Time: 13:05 Stop Time: 13:20 Total Time Billed (hr/min): 15 Billed Treatment Time 1 visit-FA 1 (15 min) HUSSEIN CAPPS Jul 28, 2018 15:23
--- NOTE | 2018-07-28 15:53 | Physical Therapy Daily Note ---
PT Daily Note-Current Subjective Agreeable to PT. Mental Status Patient Orientation: Person Transfers Therapy Code Descriptions/Definitions Functional [place] Measure: 0=Not Assessed/NA 4=Minimal Assistance 1=Total Assistance 5=Supervision or Setup 2=Maximal Assistance 6=Modified [place] 3=Moderate Assistance 7=Complete [place] Therapy Quality Codes: 6 Independent with activity with or without an assistive device 5 Patient requires set up or clean up by helper. Patient completes activity by themselves 4 Supervision or touching assist (CGA). [place] provide cues , steadying assist 3 The helper provides less than half the effort to complete the activity 2 The helper provides more than half the effort to complete the activity 1 Dependent. The helper does all the effort to complete an activity 7 Patient refused to complete or attempt activity 9 The patient did not perform the activity before the current illness or injury 88 Not attempted due to Medical conditions or safety concerns Transfers (B, C, W/C) (FIM): 5 Supine to/from Sit: 5 Sit to/from Stand: 5 (toilet transfer with SBA as well. ) Pt is SBA with all functional transfers. Toileted with SBA as well. Stood at sink with SBA. Weight Bearing Right Lower Extremity: Right Full Weight Bearing Left Lower Extremity: Left Weight Bearing/Tolerated Reviewed acute chart and Dr. Rosas wrote on 07/24/18 that she may WBAT post operatively. Spoke with Dr. Malloy this date (07/28/2018) at 0935 and she confirmed WBAT; she suggested the PWB status carried from the acute acount prior to surgery. Gait Training Does the Patient Walk?: Yes Gait (FIM): 4 Distance (FIM): 3=150 ft Distance: 150 ft Gait Assistive Device: FWW SB-CGA with gait; WBAT; orders entered by Dr. Malloy. Safe giat and steady; step through gait pattern. Treatments In bed post treatment with needs met and bed alarm activated. Assessment Transfers and gait safe and steady. PT Short Term Goals Short Term Goals Time Frame: Aug 09, 2018 Transfers (B,C,W/C) (FIM): 5 Gait (FIM): 5 Distance (FIM): 3=150 ft Gait Distance Comment: 150ft Gait Level of Assist: 5 Gait Assistive Device: FWW Stairs (FIM): 2 # of Steps: 4 Stairs Level of Assist: 2 PT Snf Goals Snf Goals Rollin PT Plan Problem List Problem List: Activity Tolerance, Functional Strength, Safety, Balance, Gait, Transfer, Bed Mobility Treatment/Plan Treatment Plan: Continue Plan of Care Treatment Plan: Bed Mobility, Education, Functional Activity Renate, Functional Strength, Gait, Safety, Therapeutic Exercise, Transfers Treatment Duration: Aug 09, 2018 Frequency: 11 times per week Estimated Hrs Per Day: .5 hour per day Patient and/or Family Agrees t: Yes Time/GCodes Time In: 1330 Time Out: 1553 Total Billed Treatment Time: 23 Total Billed Treatment visit FA 23 HUSSEIN TOMLINSON PT Jul 28, 2018 15:53
[2018-07-28 17:52] VITALS: BP 156/63
[2018-07-29 05:27] LABS: BASOPHILS % (AUTO) 0 % (0-10); EOSINOPHILS # (AUTO) 0.3 10^3/uL (0.0-0.3); EOSINOPHILS % (AUTO) 4 % (0-10); HEMATOCRIT 24 % (35-52); HEMOGLOBIN 7.9 G/DL (11.5-16.0); LYMPHOCYTES # (AUTO) 1.2 X 10^3 (1.0-4.0); LYMPHOCYTES % (AUTO) 17 % (12-44); MEAN CORPUSCULAR HEMOGLOBIN 29 PG (25-34); MEAN CORPUSCULAR HGB CONC 32 G/DL (32-36); MEAN CORPUSCULAR VOLUME 89 FL (80-99); MEAN PLATELET VOLUME 9.5 FL (7.4-10.4); MONOCYTES # (AUTO) 0.6 X 10^3 (0.0-1.0); MONOCYTES % (AUTO) 8 % (0-12); NEUTROPHILS # (AUTO) 4.8 X 10^3 (1.8-7.8); NEUTROPHILS % (AUTO) 71 % (42-75); PLATELET COUNT 254 10^3/uL (130-400); RED BLOOD COUNT 2.73 10^6/uL (4.35-5.85); RED CELL DISTRIBUTION WIDTH 12.7 % (10.0-14.5); WHITE BLOOD COUNT 6.8 10^3/uL (4.3-11.0)
[2018-07-29 06:03] LABS: ALANINE AMINOTRANSFERASE 42 U/L (0-55); ALBUMIN 3.1 GM/DL (3.2-4.5); ALKALINE PHOSPHATASE 52 U/L (40-136); BUN/CREATININE RATIO 21; CALCIUM 9.1 MG/DL (8.5-10.1); CARBON DIOXIDE 25 MMOL/L (21-32); CHLORIDE 104 MMOL/L (98-107); GFR ESTIMATED > 60; GLUCOSE 102 MG/DL (70-105); POTASSIUM 3.4 MMOL/L (3.6-5.0); SODIUM 140 MMOL/L (135-145); TOTAL PROTEIN 5.8 GM/DL (6.4-8.2)
[2018-07-29 06:06] VITALS: BP 144/63
[2018-07-29] MEDS: DOCUSATE SODIUM 100 MG (COLACE) CAP PO SCH ×2 (07:55→20:23)
[2018-07-29] MEDS: SENNA W/DOCUSATE (SENOKOT S) TABLET PO SCH ×2 (07:55→20:23)
[2018-07-29] MEDS: LACTULOSE SYRUP 10GM/15ML (ENULOSE) 30ML UDC PO SCH ×2 (07:55→20:23)
[2018-07-29] MEDS: HYDROcodone/APAP 7.5 MG/325 MG (LORTAB, LORCET PLUS) TABLET PO PRN (08:07)
[2018-07-29] MEDS: GABAPENTIN 300 MG (NEURONTIN) CAP PO SCH ×2 (08:07→20:23)
[2018-07-29] MEDS: ENOXAPARIN 30 MG/0.3 ML (LOVENOX) SYR SC SCH ×2 (08:07→20:23)
[2018-07-29] MEDS: SERTRALINE 100 MG (ZOLOFT) TAB PO SCH (08:07)
--- NOTE | 2018-07-29 09:02 | Progress Note-Hospitalist ---
Objective Exam Vital Signs Vital Signs Date Time Temp Pulse Resp B/P (MAP) Pulse Ox O2 Delivery O2 Flow Rate FiO2 07/30/18 13:40 94 20 111/53 93 Room Air 07/30/18 06:01 98.2 Capillary Refill : Less Than 3 SecondsLess Than 3 Seconds Results/Procedures Lab Patient resulted labs reviewed. Assessment/Plan Assessment and Plan Assess & Plan/Chief Complaint Assessment: Hip fracture status post uncomplicated repair HTN Debility Plan: Maintain swing bed status Upon discharge she will move out of state with her daughter Diagnosis/Problems Diagnosis/Problems (1) Hip fracture requiring operative repair Status: Resolved Resolution Date/Time: 07/27/18 @ 11:48 (2) Essential (primary) hypertension Status: Chronic Clinical Quality Measures DVT/VTE Risk/Contraindication: Risk Factor Score Per Nursin CHRISTOPHER DOMINGUEZ DO Jul 29, 2018 09:02
--- NOTE | 2018-07-29 09:28 | NUR ---
IRF Evaluation: Notified by SW to proceed with evaluation for ARU. According to PT Progress Note, patient is transferring with supervision and ambulating (150ft, RW) with minimal assistance. Additionally, this worker was informed a recommendation of discharge would be made; therefore, it was determined the patient does not require intensive therapies, at this time. CHICO/CARMEL and Dr. Malloy notified. Thank you for this referral.
--- NOTE | 2018-07-29 09:52 | Physical Therapy Daily Note ---
PT Daily Note-Current Subjective Patient agrees to PT. No c/o. Pain Numeric Pain Scale: 0-No Pain Location: No Pain Reported Mental Status Patient Orientation: Person, Time, Situation Transfers Therapy Code Descriptions/Definitions Functional [place] Measure: 0=Not Assessed/NA 4=Minimal Assistance 1=Total Assistance 5=Supervision or Setup 2=Maximal Assistance 6=Modified [place] 3=Moderate Assistance 7=Complete [place] Therapy Quality Codes: 6 Independent with activity with or without an assistive device 5 Patient requires set up or clean up by helper. Patient completes activity by themselves 4 Supervision or touching assist (CGA). [place] provide cues , steadying assist 3 The helper provides less than half the effort to complete the activity 2 The helper provides more than half the effort to complete the activity 1 Dependent. The helper does all the effort to complete an activity 7 Patient refused to complete or attempt activity 9 The patient did not perform the activity before the current illness or injury 88 Not attempted due to Medical conditions or safety concerns Transfers (B, C, W/C) (FIM): 5 Scootin Rollin Roll Left to Right (QC): 5 Supine to/from Sit: 5 Sit to/from Stand: 5 Sit to Lying (QC): 5 Sit to Stand (QC): 5 Chair/[id number]-Yqijz Xfer(QC): 5 Bed to/from Chair: 5 Weight Bearing Right Lower Extremity: Right Full Weight Bearing Left Lower Extremity: Left Weight Bearing/Tolerated Reviewed acute chart and Dr. Rosas wrote on 07/24/18 that she may WBAT post operatively. Spoke with Dr. Malloy this date (07/28/2018) at 0935 and she confirmed WBAT; she suggested the PWB status carried from the acute acount prior to surgery. Gait Training Does the Patient Walk?: Yes Gait (FIM): 5 Distance (FIM): 3=150 ft Distance: 275' Walk 10 feet (QC): 5 Walk 50 ft with 2 Turns(QC): 5 Walk 150 ft (QC): 5 Gait Level of Assist: 5 Gait Assistive Device: FWW steady, functional gait sequence with FWW/skilled cues for body placement in FWW Exercises Supine Ex: Ankle pumps, Quad Set, Heel Slides Supine Reps: 15 Seated Therapy Exercises: Ankle pumps, Long arc quads Seated Reps: 15 Assessment Patient progressing with treatment plan. PT to continue to increase activity as tolerated by patient. PT Short Term Goals Short Term Goals Time Frame: Aug 09, 2018 Transfers (B,C,W/C) (FIM): 5 Gait (FIM): 5 Distance (FIM): 3=150 ft Gait Distance Comment: 150ft Gait Level of Assist: 5 Gait Assistive Device: FWW Stairs (FIM): 2 # of Steps: 4 Stairs Level of Assist: 2 PT Prison Goals Prison Goals Rollin PT Plan Treatment/Plan Treatment Plan: Continue Plan of Care Treatment Plan: Bed Mobility, Education, Functional Activity Renate, Functional Strength, Gait, Safety, Therapeutic Exercise, Transfers Treatment Duration: Aug 09, 2018 Frequency: 11 times per week Estimated Hrs Per Day: .5 hour per day Patient and/or Family Agrees t: Yes Time/GCodes Time In: 910 Time Out: 933 Total Billed Treatment Time: 23 Total Billed Treatment 1 visit GT 9 min EX 14 min AUNG FRY PT Jul 29, 2018 09:52
--- NOTE | 2018-07-29 11:14 | Physical Therapy Daily Note ---
PT Daily Note-Current Subjective Patient agrees to 2nd visit on this date. Pain Numeric Pain Scale: 3 Location: Left Location Body Site: Hip Pain Description: Acute Mental Status Patient Orientation: Person, Time, Situation Transfers Therapy Code Descriptions/Definitions Functional [place] Measure: 0=Not Assessed/NA 4=Minimal Assistance 1=Total Assistance 5=Supervision or Setup 2=Maximal Assistance 6=Modified [place] 3=Moderate Assistance 7=Complete [place] Therapy Quality Codes: 6 Independent with activity with or without an assistive device 5 Patient requires set up or clean up by helper. Patient completes activity by themselves 4 Supervision or touching assist (CGA). [place] provide cues , steadying assist 3 The helper provides less than half the effort to complete the activity 2 The helper provides more than half the effort to complete the activity 1 Dependent. The helper does all the effort to complete an activity 7 Patient refused to complete or attempt activity 9 The patient did not perform the activity before the current illness or injury 88 Not attempted due to Medical conditions or safety concerns Transfers (B, C, W/C) (FIM): 5 Scootin Rollin Roll Left to Right (QC): 6 Supine to/from Sit: 6 Sit to/from Stand: 5 Sit to Lying (QC): 6 Sit to Stand (QC): 5 Chair/Czp-vr-Mtmrs Xfer(QC): 5 Bed to/from Chair: 5 Car Transfer (QC): 5 Patient performed car transfer without difficulty. Weight Bearing Right Lower Extremity: Right Full Weight Bearing Left Lower Extremity: Left Weight Bearing/Tolerated Reviewed acute chart and Dr. Rosas wrote on 07/24/18 that she may WBAT post operatively. Spoke with Dr. Malloy this date (07/28/2018) at 0935 and she confirmed WBAT; she suggested the PWB status carried from the acute acount prior to surgery. Gait Training Does the Patient Walk?: Yes Gait (FIM): 5 Distance (FIM): 3=150 ft Distance: 325' x 2 Walk 10 feet (QC): 5 Walk 50 ft with 2 Turns(QC): 5 Walk 150 ft (QC): 5 Gait Level of Assist: 5 Gait Assistive Device: FWW steady, reciprocal pattern Assessment Patient performed all gross motor skills SBA to modified independent on this date and will dismiss with family 07/30/18. Patient is in bed with 4 rails up and alarm activated. PT Short Term Goals Short Term Goals Time Frame: Aug 09, 2018 Transfers (B,C,W/C) (FIM): 5 Gait (FIM): 5 Distance (FIM): 3=150 ft Gait Distance Comment: 150ft Gait Level of Assist: 5 Gait Assistive Device: FWW Stairs (FIM): 2 # of Steps: 4 Stairs Level of Assist: 2 PT Bus And Trolley Inspecting Dispatcher Goals Bus And Trolley Inspecting Dispatcher Goals Rollin PT Plan Treatment/Plan Treatment Plan: Continue Plan of Care Treatment Plan: Bed Mobility, Education, Functional Activity Renate, Functional Strength, Gait, Safety, Therapeutic Exercise, Transfers Treatment Duration: Aug 09, 2018 Frequency: 11 times per week Estimated Hrs Per Day: .5 hour per day Patient and/or Family Agrees t: Yes Time/GCodes Time In: 1055 Time Out: 1107 Total Billed Treatment Time: 12 Total Billed Treatment 1 visit FA 12 min AUNG FRY PT Jul 29, 2018 11:14
--- NOTE | 2018-07-29 13:40 | Occupational Ther Daily Note ---
OT Current Status-Daily Note Subjective Pt alert, lying in bed. No c/o pain at this time. Mental Status/Objective Patient Orientation: Person Therapy Code Descriptions/Definitions Functional [place] Measure: 0=Not Assessed/NA 4=Minimal Assistance 1=Total Assistance 5=Supervision or Setup 2=Maximal Assistance 6=Modified [place] 3=Moderate Assistance 7=Complete [place] Attachments: IV ADL-Treatment Therapy Code Descriptions/Definitions Functional [place] Measure: 0=Not Assessed/NA 4=Minimal Assistance 1=Total Assistance 5=Supervision or Setup 2=Maximal Assistance 6=Modified [place] 3=Moderate Assistance 7=Complete [place] Therapy Quality Codes: 6 Independent with activity with or without an assistive device 5 Patient requires set up or clean up by helper. Patient completes activity by themselves 4 Supervision or touching assist (CGA). [place] provide cues , steadying assist 3 The helper provides less than half the effort to complete the activity 2 The helper provides more than half the effort to complete the activity 1 Dependent. The helper does all the effort to complete an activity 7 Patient refused to complete or attempt activity 9 The patient did not perform the activity before the current illness or injury 88 Not attempted due to Medical conditions or safety concerns Other Treatment Pt stated that she had already walked with therapy and went downstairs and got into that big white thing (simulated care transfer with PT). [place] educated pt about occupational therapy and encouraged pt to complete ADLs/grooming. Pt state, "No,no I am fine. I don't have many teeth to worry about." Pt did agree to get out of bed and transfer into recliner. Pt able to go from supine to EOB by self then ambulated with FWW to recliner, chair alarm set. Pt then demonstrated good fine motor skills to open packages and banana. Pt did attempt to use phone to turn on tv then when given call light pt recognized that is what is used to turn on tv. After therapy, pt sitting in recliner with alarm set. Call light/phone in reach. All needs met in room. OT Short Term Goals Short Term Goals Time Frame: Aug 02, 2018 Eating(FIM): 5 Grooming(FIM): 4 Bathing(FIM): 4 (with AE) Upper Body Dressing(FIM): 5 Lower Body Dressing(FIM): 4 (with AE) Toileting(FIM): 5 Transfers (B,C,W/C) (FIM): 5 Toilet/Commode Transfer(FIM): 5 Shower Transfer(FIM): 5 Additional Short Term Goals: 1-Demonstrate ADL Tasks, 2-Verbalize Understanding , 3-ImproveStrength/Renate 1=Demonstrate adherence to instructed precautions during ADL tasks. 2=Patient will verbalize/demonstrate understanding of assistive devices/ modifications for ADL. 3=Patient will improve strength/tolerance for activity to enable patient to perform ADL's. OT Detention Goals Ad Compositor Goals Time Frame: Aug 09, 2018 Eating (FIM): 7 Eating (QC): 6 Groomin Oral Hygiene (QC): 6 Bathing(FIM): 5 Shower/Bathe Self (QC): 5 Upper Body Dressing(FIM): 6 Upper Body Dressing (QC): 6 Lower Body Dressing(FIM): 6 Lower Body Dressing (QC): 6 On/Off Footwear (QC): 6 Toileting(FIM): 6 Toileting Hygiene (QC): 6 Transfers (B,C,W/C) (FIM): 6 Toilet/Commode Transfer(FIM): 6 Toilet/Commode Transfer (QC): 6 Shower Transfer(FIM): 5 Additional Goals: 1-Demonstrate ADL Tasks, 2-Verbalize Understanding, 3- ImproveStrength/Renate 1=Demonstrate adherence to instructed precautions during ADL tasks. 2=Patient will verbalize/demonstrate understanding of assistive devices/ modifications for ADL. 3=Patient will improve strength/tolerance for activity to enable patient to perform ADL's. OT Education/Plan Discharge Recommendations Plan/Recommendations: Continue POC Treatment Plan/Plan of Care Patient would benefit from OT for education, treatment and training to promote independence in ADL's, mobility, safety and/or upper extremity function for ADL' s. Plan of Care: ADL Retraining, Functional Mobility, UE Funct Exercise/Act Treatment Duration: Aug 09, 2018 Frequency: 5 times per week Estimated Hrs Per Day: .25 hour per day Agreement: Yes Rehab Potential: Good Time/GCodes Start Time: 13:20 Stop Time: 13:35 Total Time Billed (hr/min): 15 Billed Treatment Time 1 visit-FA 1 (15 min) HUSSEIN CAPPS Jul 29, 2018 13:40
[2018-07-29 15:40] VITALS: BP 145/65
[2018-07-29 17:40] VITALS: BP 145/65
[2018-07-30 06:01] VITALS: BP 135/66
[2018-07-30] MEDS: SERTRALINE 100 MG (ZOLOFT) TAB PO SCH (08:42)
[2018-07-30] MEDS: GABAPENTIN 300 MG (NEURONTIN) CAP PO SCH (08:42)
[2018-07-30] MEDS: ENOXAPARIN 30 MG/0.3 ML (LOVENOX) SYR SC SCH (08:42)
[2018-07-30] MEDS: LACTULOSE SYRUP 10GM/15ML (ENULOSE) 30ML UDC PO SCH (08:49)
[2018-07-30] MEDS: DOCUSATE SODIUM 100 MG (COLACE) CAP PO SCH (08:49)
[2018-07-30] MEDS: SENNA W/DOCUSATE (SENOKOT S) TABLET PO SCH (08:50)
--- NOTE | 2018-07-30 09:13 | Therapy Team Discharge Summary ---
Therapy Discharge Summary Discharge Recommendations Date of Discharge Therapy D/C Recommendations: Home w/ Family Support, Occupational Therapy Home Care Physical Therapy PT educated patient on mobility and exercise on this date. Patient declined PT due to dismissal to NH or home with family. Patient is currently SBA to modified independent with all gross motor skills. She ambulates with FWW x 300 ' with steady, functional gait sequence. Patient performs bed mobility and transfers SBA. Patient demonstrated independent car transfer 07/29/18. Patient has attained all functional goals. PT to dismiss at this time. Occupational Therapy Decreased Activ Tolerance, Impaired I ADL's, Impaired Self-Care Skills PT Newspaper Inserter Goals Care Home Goals Rollin OT Care Home Goals Care Home Goals Time Frame: Aug 09, 2018 Eating (FIM): 7 Eating (QC): 6 Groomin Oral Hygiene (QC): 6 Bathing(FIM): 5 Upper Body Dressing(FIM): 6 Lower Body Dressing(FIM): 6 Toileting(FIM): 6 Toileting Hygiene (QC): 6 Transfers (B,C,W/C) (FIM): 6 Toilet/Commode Transfer(FIM): 6 Toilet/Commode Transfer (QC): 6 Shower Transfer(FIM): 5 Additional Goals: 1-Demonstrate ADL Tasks, 2-Verbalize Understanding, 3- ImproveStrength/Renate 1=Demonstrate adherence to instructed precautions during ADL tasks. 2=Patient will verbalize/demonstrate understanding of assistive devices/ modifications for ADL. 3=Patient will improve strength/tolerance for activity to enable patient to perform ADL's. AUNG FRY PT Jul 30, 2018 09:13
[2018-07-30] MEDS ORDERED: HYDR-34 PO (10:56)
[2018-07-30] MEDS ORDERED: APIX2.5T PO (10:56)
--- NOTE | 2018-07-30 10:57 | Discharge Summary-Hospitalist ---
Diagnosis/Chief Complaint Date of Admission Jul 26, 2018 at 11:54 Date of Discharge Discharge Date: Jul 30, 2018 Discharge Diagnosis (1) Hip fracture requiring operative repair Status: Resolved (2) Essential (primary) hypertension Status: Chronic Discharge Summary Discharge Physical Exam Allergies: Coded Allergies: No Known Drug Allergies (Unverified , 02/06/12) Vitals & I&Os Vital Signs Date Time Temp Pulse Resp B/P (MAP) Pulse Ox O2 Delivery O2 Flow Rate FiO2 07/30/18 13:40 94 20 111/53 93 Room Air 07/30/18 06:01 98.2 General Appearance: No Apparent Distress, WD/WN, Chronically ill Neurologic/Psychiatric: Alert, Oriented x3, No Motor/Sensory Deficits, Normal Mood/Affect Hospital Course Hospital course: Patient had a brief swing bed hospital course she was placed in that status receive physical therapy and was monitor closely. Arrangements were made to go home with family with physical therapy arranged by family member. Anticoagulation will be maintained for DVT prophylaxis for at least 1 month and she was close follow-up per primary care provider. Labs (last 24 hrs) Patient resulted labs reviewed. Discussion & Recommendations Discharge Planning: <30 minutes discharge planning Discharge Home Medications: Active Scripts Active Eliquis (Apixaban) 2.5 Mg Tablet 2.5 Mg PO BID Lortab 7.5 Mg Tablet (Acetaminophen/Hydrocodone Bitart) 1 Ea Tablet 1 Ea PO Q6H PRN Reported Lisinopril-Hctz 20-12.5 mg Tab (Lisinopril/Hydrochlorothiazide) 1 Each Tablet 1 Tab PO DAILY Naproxen 500 Mg Tablet 500 Mg PO BID Sertraline HCl 100 Mg Tablet 100 Mg PO DAILY LAST FILLED #90 03-11-18 Gabapentin 300 Mg Capsule 300 Mg PO BID Atorvastatin Calcium 40 Mg Tablet 40 Mg PO DAILY LAST FILLED #90 03-11-18 Instructions to patient/family Please see electronic discharge instructions given to patient. Clinical Quality Measures DVT/VTE Risk/Contraindication: Risk Factor Score Per Nursin CRHISTOPHER DOMINGUEZ DO Jul 30, 2018 10:57
[2018-07-30 13:40] VITALS: BP 111/53
--- NOTE | 2018-08-04 09:37 | Therapy Team Discharge Summary ---
Therapy Discharge Summary Discharge Recommendations Date of Discharge Jul 30, 2018 at 13:40 Therapy D/C Recommendations: Home w/ Family Support, Occupational Therapy Home Care Occupational Therapy Pt. has been seen by occupational therapy to increase overall strength and independence with daily tasks. Pt. has met some goals but not all. Pt. has declined practicing most ADL skills with therapy, as she has already done them or doesn't at that time. Pt. has demonstrated good transfers and ability to ambulate. Pt. has discharged with family support. Decreased Activ Tolerance, Impaired I ADL's, Impaired Self-Care Skills PT Longterm Goals Cured Meat Packing Supervisor Goals Rollin OT Cured Meat Packing Supervisor Goals Longterm Goals Time Frame: Aug 09, 2018 Eating (FIM): 7 (met) Eating (QC): 6 (met) Groomin (met) Oral Hygiene (QC): 6 (not met) Bathing(FIM): 5 (not met with therapy due to declining practicing.) Upper Body Dressing(FIM): 6 (not met with therapy) Lower Body Dressing(FIM): 6 (not met) Toileting(FIM): 6 (met) Toileting Hygiene (QC): 6 (met) Transfers (B,C,W/C) (FIM): 6 (met) Toilet/Commode Transfer(FIM): 6 (met) Toilet/Commode Transfer (QC): 6 (met) Shower Transfer(FIM): 5 (not met with therapy.) Additional Goals: 1-Demonstrate ADL Tasks, 2-Verbalize Understanding, 3- ImproveStrength/Renate 1=Demonstrate adherence to instructed precautions during ADL tasks. 2=Patient will verbalize/demonstrate understanding of assistive devices/ modifications for ADL. 3=Patient will improve strength/tolerance for activity to enable patient to perform ADL's. NORA LEONARDO OT Aug 04, 2018 09:37
== END 2018-07-30 13:40 | disposition home or self-care (01) | DRG 561 ==
LOC: 4TH 11:54 → EEVIPCON 11:54 → 4TH 07-27 17:36
PROVIDERS: ADMIT Internal Medicine; ATTEND Internal Medicine
DX: S72.002D Fracture of unspecified part of neck of left femur, subsequent encounter for closed fracture with routine healing (principal); I10 Essential (primary) hypertension; R53.81 Other malaise; Z96.642 Presence of left artificial hip joint; W19.XXXD Unspecified fall, subsequent encounter; Y92.510 Bank as the place of occurrence of the external cause
CPT/HCPCS: 36415; 80053; 85025